=== PATIENT | female | born 1960 | race African-American/Black ===

== ENCOUNTER 2024-09-19 09:35 | Emergency (ER) | payer MEDICAID, OTHER ==
[~2024-09-19] VITALS: Ht 170.2 cm; Wt 92.9 kg
--- NOTE | 2024-09-19 09:58 | ED.PDOC ---
GI ASSESSMENT HPI Comments A 63 YEAR OLD FEMALE PRESENTS TO THE ED WITH CHIEF COMPLAINT OF NAUSEA/VOMITING. PATIENT REPORTS THAT SHE HAS BEEN EXPERIENCING NAUSEA AND VOMITING WITH ASSOCIATED ABDOMINAL PAIN FOR THE PAST 2 DAYS. PATIENT RELAYS THAT SHE FEELS DEHYDRATED DUE TO NOT BEING ABLE TO EAT FOOD OR DRINK LIQUIDS. PATIENT DENIES ANY DIARRHEA, CHEST PAIN, SOB, FEVER, CHILLS, COUGH, HEMATEMESIS, OR DYSURIA.NO OTHER SYMPTOMS REPORTED AT THIS TIME OF CARE. Chief Complaint: Nausea/Vomiting Time Seen by MD: 09:56 Reviewed Notes: Nurses Notes, Medications, Allergies Allergies: Coded Allergies: Acetaminophen (Verified Allergy, Unknown, 09/19/24) Hydrocodone (Verified Allergy, Unknown, 09/19/24) Oxycodone (Verified Allergy, Unknown, 09/19/24) Home Meds Active Scripts Metoclopramide Hcl (Reglan) 10 Mg Tab, 10 MG PO TID, #30 TAB Prov:RAFY KRISHNA 09/19/24 Ibuprofen (Ibuprofen) 800 Mg Tab, 1 TAB PO TID, #30 TAB Prov:RAFY KRISHNA 09/19/24 Information Source: Patient Mode of Arrival: Ambulatory Timing: Days Duration: Since onset Prehospital treatment: None Quality: Aching Vomitus: Food Particles Stool: Normal Severity: Moderate Recent: None Recent Hx of: None Pain Location: Epigastric Modifying Factors: Nothing Associated sign and symptoms: Nausea, Vomiting, Abdominal Pain Past Medical History PAST MEDICAL HISTORY: CKF, DM Surgical History: Denies all surgeries COLDFUSION History: No Pertinent COLDFUSION History Family History Family History: Reviewed,noncontributory to illness Social History Smoker: Non-Smoker Alcohol: Denies ETOH Use Drugs: Denies Drug Use Lives In: Home Constitutional: reports: others (ANXIOUS ); denies: chills, diaphoresis, fatigue, fever, malaise, sweats, weakness EENTM: denies: blurred vision, double vision, ear bleeding, ear discharge, ear drainage, ear pain, ear ringing, eye pain, eye redness, hearing loss, mouth pain, mouth swelling, nasal discharge, nose bleeding, nose congestion, nose pain, photophobia, tearing, throat pain, throat swelling, voice changes, others Respiratory: denies: cough, hemoptysis, orthopnea, SOB at rest, shortness of breath, SOB with excertion, stridor, wheezing, others Cardiovascular: denies: chest pain, dizzy spells, diaphoresis, Dyspnea on exertion, edema, irregular heart beat, left arm pain, lightheadedness, palpitations, PND, syncope, others Gastrointestinal: reports: abdominal pain, nausea, vomiting; denies: abdomen distended, blood streaked bowels, constipated, diarrhea, dysphagia, difficulty swallowing, hematemesis, melena, poor appetite, poor fluid intake, rectal bleeding, rectal pain, others Genitourinary: denies: abnormal vagina bleeding, burning, dyspareunia, dysuria, flank pain, frequency, hematuria, incontinence, pain, , vagina discharge, urgency, others Neurological: denies: dizziness, fainting, headache, left sided numbness, left sided weakness, numbness, paresthesia, pre-existing deficit, right sided numbness, right sided weakness, seizure, speech problems, tingling, tremors, weakness, others Musculoskeletal: denies: back pain, gout, joint pain, joint swelling, muscle pain, muscle stiffness, neck pain, others Integumetry: denies: bruises, change in color, change in hair/nails, dryness, laceration, lesions, lumps, rash, wounds, others Allergic/Immunocompromised: denies: Difficulty Healing, Frequent Infections, Hives, Itching, others Hematologic/Lymphatic: denies: anemia, blood clots, easy bleeding, easy bruising, swollen glands, others Endocrine: denies: excessive hunger, excessive sweating, excessive thirst, excessive urination, flushing, intolerance to cold, intolerance to heat, unexplained weight gain, unexplained weight loss, others Psychiatric: reports: anxiety; denies: bipolar disorder, depression, hopeless, panic disorder, schizophrenia, sleepless, suicidal, others All Other Systems: Reviewed and Negative Physical Exam General Appearance: No Apparent Distress, Obese, Other (ANXIOUS ) HEENT: Normal ENT Inspection, PERRL/EOMI, Pharynx Normal Neck: Full Range of Motion, Non-Tender, Normal, Normal Inspection Respiratory: Chest Non-Tender, Lungs Clear, No Accessory Muscle Use, No Respiratory Distress, Normal Breath Sounds Cardiovascular: No Edema, No JVD, No Murmur, No Gallop, Normal Peripheral Pulses, Regular Rate/Rhythm Breast Exam: Deferred Gastrointestinal: Epigastric, No Organomegaly, No Pulsatile Mass, Normal Bowel Sounds, Soft, Tenderness (TENDERNESS EPIGASTRIC, NO GUARDING AND REBOUND TENDERNESS. ) Genitalia: Deferred Pelvic: Deferred Rectal: Deferred Extremities: No calf tenderness, Normal capillary refill, Normal inspection, Normal range of motion, Non-tender, No pedal edema Musculoskeletal : Apperance: Normal Neurologic: Alert, network developer II-XII nml as Tested, No Motor Deficits, Normal Affect, Normal Mood, No Sensory Deficits Cerebellar Function: Normal Reflexes: Normal Skin: Dry, Normal Color, Warm Peripheral Pulses: 2+ carotid (R), 2+ carotid (L) Lymphatic: No Adenopathy Was a procedure done? Was a procedure done?: No GI differential Dx Differential Diagnosis: Cholecystitis, Gastritis/PUD, Gastroenteritis, Inflammatory BD, UTI, Urolithiasis X-Ray, Labs, Meds, VS Vital Signs Date Time Temp Pulse Resp B/P (MAP) Pulse Ox O2 Delivery O2 Flow Rate FiO2 09/19/24 12:38 83 18 97 Room Air 09/19/24 12:38 97.9 83 18 120/70 (87) 97 97.9 09/19/24 09:51 97.0 112 18 119/69 (86) 98 Lab Test 09/19/24 09:57 09/19/24 09:56 09/19/24 09:54 Range/Units White Blood Count 6.7 4.4-10.8 10^3/uL Red Blood Count 5.32 H 4.0-5.20 10^6/uL Hemoglobin 16.3 H 12.2-16.2 g/dL Hematocrit 48.7 H 36.0-46.0 % Mean Corpuscular Volume 91.5 80.0-100.0 fL Mean Corpuscular Hemoglobin 30.7 28.0-32.0 pg Mean Corpuscular Hemoglobin Concent 33.6 32.0-36.0 g/dL Red Cell Distribution Width 15.3 H 11.8-14.3 % Platelet Count 308 140-450 10^3/uL Mean Platelet Volume 8.9 6.9-10.8 fL Neutrophils (%) (Auto) 59.7 37.0-80.0 % Lymphocytes (%) (Auto) 30.9 10.0-50.0 % Monocytes (%) (Auto) 6.2 0.0-12.0 % Eosinophils (%) (Auto) 2.4 0.0-7.0 % Basophils (%) (Auto) 0.8 0.0-2.0 % Neutrophils # (Auto) 4.0 1.6-8.6 10 ^3/uL Lymphocytes # (Auto) 2.1 0.4-5.4 10 ^3/uL Monocytes # (Auto) 0.4 0-1.3 10 ^3/uL Eosinophils # (Auto) 0.2 0-0.8 10 ^3/uL Basophils # (Auto) 0.1 0-0.2 10 ^3/uL Nucleated Red Blood Cells 0.2 % Sodium Level 139 136-145 mmol/L Potassium Level 4.2 3.5-5.1 mmol/L Chloride Level 106 98-107 mmol/L Carbon Dioxide Level 22 20-31 mmol/L Anion Gap 11 5-15 Blood Urea Nitrogen 26 H 9-23 mg/dL Creatinine 2.21 H 0.550-1.02 mg/dL Glomerular Filtration Rate Calc 25 >90 mL/min BUN/Creatinine Ratio 11.8 10.0-20.0 Serum Glucose 127 H 74-106 mg/dL Calcium Level 10.1 8.7-10.4 mg/dL Total Bilirubin 0.4 0.2-1.0 mg/dL Aspartate Amino Transferase (AST) 17 13-40 U/L Alanine Aminotransferase (ALT) 16 7-40 U/L Alkaline Phosphatase 103 46-116 U/L Total Protein 8.0 5.7-8.2 g/dL Albumin 4.3 3.2-4.8 g/dL Lipase 50 12-53 U/L POC Glucose 148 H 70-106 mg/dl Urine Color Light-yellow Yellow Urine Clarity Cloudy H Clear Urine pH 5.0 5.0-9.0 Urine Specific Sargent 1.022 1.001-1.035 Urine Protein 1+ H Negative Urine Ketones 1+ H Negative Urine Blood Negative Negative /uL Urine Nitrite Negative Negative Urine Bilirubin Negative Negative Urine Urobilinogen Normal Negative mg/dL Urine Leukocyte Esterase 3+ Negative /uL Urine RBC None seen 0 - 4 /hpf Urine WBC 71 0 - 5 /hpf Urine Squamous Epithelial Cells Few <5 /hpf Urine Bacteria Mod H None Seen /hpf Urine Yeast (Budding) Occasional None Seen /hpf Urine Glucose 4+ H Normal mg/dL Current Medications Medications (Trade) Dose Ordered Sig/Ulises Route Start Time Stop Time Status Last Admin Sodium Chloride 1,000 ml @ 1,000 mls/hr Q1H ONCE IV 09/19/24 11:30 09/19/24 12:29 DC 09/19/24 11:30 GALLBLADDER US: FINDINGS: The liver measures 13.7 cm. The liver demonstrates heterogeneous echotexture. There is a echogenic mass in the right lobe measuring 1.3 x 1.2 x 1.1 cm. Additional linear echogenic foci throughout the liver. There is hepatopedal color doppler flow in the main portal vein. There is no intrahepatic biliary ductal dilatation. There are gallstones. The gallbladder wall measures 0.2 cm. The common bile duct measures 0.4 cm. There is a negative sonographic Ventura's sign. The right kidney measures 8.7 cm. The right kidney is normal in contour, size, and shape. The echogenicity is normal. There is no hydronephrosis. The pancreas is not well visualized due to overlying bowel gas. Visualized portions of the aorta and inferior vena cava are unremarkable. No evidence of ascites. IMPRESSION: 1. Cholelithiasis without acute cholecystitis. 2. Heterogeneous echotexture of the liver which could be related to hepatic steatosis. 1.3 cm echogenic mass in the right lobe compatible with a hemangioma. Further evaluation with contrast-enhanced CT of the abdomen pelvis may be obtained if clinically warranted X-Ray, Labs, Meds, VS Comment I reviewed the following notes from patient's past medical encounters: None The following tests were ordered, and results were reviewed by me: CBC, CMP, LIPASE, UA, GALLBLADDER US Additional Information was gathered from interviewing the following independent historians: None I reviewed and agreed with the following test results read by other providers: GALLBLADDER US I discussed treatment and results with medical personnel. TREATMENT: ZOFRAN 4MG IV, FAMOTIDINE 20MG IV, NORMAL SALINE 1L IV AND TORADOL 30MG IVP, ROCEPHIN 1GM IVPB Time of 1ST Reevaluation: 10:56 Reevaluation 1ST: Unchanged Time of 2ND Reevaluation: 12:50 Reevaluation 2ND: Improved Patient Education/Counseling: Diagnosis, Treatment, Need For Follow Up Family Education/Counseling: Diagnosis, Treatment, No Family Present Medical Screening: No EMC Exist At This Time Departure 1 Departure Time of Disposition: 13:20 Impression: Primary Impression: Cholelithiases Qualified Codes: K80.20 - Calculus of gallbladder without cholecystitis without obstruction Additional Impressions: Hepatic hemangioma UTI (urinary tract infection) Qualified Codes: N30.00 - Acute cystitis without hematuria Disposition: HOME / SELF CARE / HOMELESS Condition: Stable Additional Instructions: FOLLOW UP WITH PCP WITHIN 2-3 DAYS. IF CONDITION BECOME WORSE, RETURN TO ED THERESA. e-Prescriptions Metoclopramide Hcl (Reglan) 10 Mg Tab 10 MG PO TID, #30 TAB Prov: RAFY KRISHNA 09/19/24 Ibuprofen (Ibuprofen) 800 Mg Tab 1 TAB PO TID, #30 TAB Prov: RAFY KRISHNA 09/19/24 Discharged With: Self Critical Care Note Critical Care Time?: No Stability Stability form required: No Heart Score Heart Score: Heart Score Response (Comments) Value History N/A 0 EKG N/A 0 Age N/A 0 Risk Factors N/A 0 Troponin N/A 0 Total 0 I personally scribed for RAFY KRISHNA ([email or web address]) on 09/19/24 at 09:58. Electronically submitted by Nathan Velasco ([email or web address]). I personally scribed for RAFY KRISHNA ([email or web address]) on 09/19/24 at 09:59. Electronically submitted by Nathan Velasco ([email or web address]). I personally scribed for RAFY KRISHNA ([email or web address]) on 09/19/24 at 11:57. Electronically submitted by Nathan Velasco ([email or web address]). RAFY KRISHNA Sep 19, 2024 09:58
[2024-09-19 10:29] LABS: Basophils # (auto) 0.1 10 ^3/uL (0-0.2); Basophils % (auto) 0.8 % (0.0-2.0); Eosinophils # (auto) 0.2 10 ^3/uL (0-0.8); Eosinophils % (auto) 2.4 % (0.0-7.0); Hematocrit 48.7 % (36.0-46.0); Hemoglobin 16.3 g/dL (12.2-16.2); Lymphocytes # (auto) 2.1 10 ^3/uL (0.4-5.4); Lymphocytes % (auto) 30.9 % (10.0-50.0); Mean Corpuscular Hemoglobin 30.7 pg (28.0-32.0); Mean Corpuscular Hgb Conc. 33.6 g/dL (32.0-36.0); Mean Corpuscular Volume 91.5 fL (80.0-100.0); Monocytes # (auto) 0.4 10 ^3/uL (0-1.3); Monocytes % (auto) 6.2 % (0.0-12.0); Neutrophils % (auto) 59.7 % (37.0-80.0); Nucleated Red Blood Cells % 0.2 %; Platelet Count (auto) 308 10^3/uL (140-450); Red Blood Cells 5.32 10^6/uL (4.0-5.20); Red Cell Distribution Width 15.3 % (11.8-14.3); White Blood Cell 6.7 10^3/uL (4.4-10.8)
[2024-09-19 10:40] LABS: Alanine Aminotransferase 16 U/L (7-40); Albumin 4.3 g/dL (3.2-4.8); Alkaline Phosphatase 103 U/L (46-116); Anion Gap 11 (5-15); Aspartate Aminotransferase 17 U/L (13-40); BUN/Creatinine Ratio 11.8 (10.0-20.0); Bilirubin, Total 0.4 mg/dL (0.2-1.0); Calcium 10.1 mg/dL (8.7-10.4); Carbon Dioxide 22 mmol/L (20-31); Chloride 106 mmol/L (98-107); Potassium 4.2 mmol/L (3.5-5.1); Sodium 139 mmol/L (136-145)
[2024-09-19 10:45] LABS: Blood Urea Nitrogen 26 mg/dL (9-23); Glucose 127 mg/dL (74-106)
[2024-09-19 11:14] LABS: Lipase 50 U/L (12-53)
[2024-09-19] MEDS: SODIUM CHLORIDE 0.9% 1,000 ML IV ONE (11:30)
[2024-09-19] MEDS: FAMOTIDINE (10MG/ML) 2ML VL IV ONE (11:30)
[2024-09-19] MEDS: ONDANSETRON HCL 4 MG/2 ML VIAL IV ONE (11:30)
--- NOTE | 2024-09-19 11:48 | DVH ---
EXAM: US GALLBLADDER INDICATION: EPIGASTRIC PAIN WITH N/V TECHNIQUE: Multiple real-time sonographic images were obtained of the right upper quadrant. COMPARISON: None FINDINGS: The liver measures 13.7 cm. The liver demonstrates heterogeneous echotexture. There is a e chogenic mass in the right lobe measuring 1.3 x 1.2 x 1.1 cm. Additional linear echogenic foci throug hout the liver. There is hepatopedal color doppler flow in the main portal vein. There is no intrahep atic biliary ductal dilatation. There are gallstones. The gallbladder wall measures 0.2 cm. The common bile duct measures 0.4 cm . There is a negative sonographic Ventura's sign. The right kidney measures 8.7 cm. The right kidney is normal in contour, size, and shape. The echo genicity is normal. There is no hydronephrosis. The pancreas is not well visualized due to overlying bowel gas. Visualized portions of the aorta and inferior vena cava are unremarkable. No evidence of ascites. IMPRESSION: 1. Cholelithiasis without acute cholecystitis. 2. Heterogeneous echotexture of the liver which could be related to hepatic steatosis. 1.3 cm echogen ic mass in the right lobe compatible with a hemangioma. Further evaluation with contrast-enhanced CT of the abdomen pelvis may be obtained if clinically warranted HS:Y
[2024-09-19] MEDS: KETOROLAC TROMETH 30 MG/ML 1ML VIAL IV ONE (12:11)
[2024-09-19 12:38] VITALS: BP 120/70; PULSE 83; RESP 18; TEMP 97.9; O2SAT 97
[2024-09-19] MEDS ORDERED: METO-281 PO (12:41)
[2024-09-19] MEDS ORDERED: IBUP-1456 PO (12:41)
[2024-09-19 12:49] LABS: Urine Bacteria MOD /hpf (None Seen); Urine Blood Negative /uL (Negative); Urine Budding Yeast OCCASIONAL /hpf (None Seen); Urine Color Light-Yellow (Yellow); Urine Protein, UAD 1+ (Negative); Urine Specific Gravity 1.022 (1.001-1.035); Urine Squamous Epithelial Cell FEW /hpf (<5); Urine Urobilinogen Normal (Negative); Urine WBC 71 /hpf (0 - 5)
[2024-09-19 12:50] LABS: Urine Clarity Cloudy (Clear)
[2024-09-19] MEDS: cefTRIAXone SOD 1,000 MG VL IM ONE (12:59)
== END 2024-09-19 13:35 | disposition home or self-care (01) ==
LOC: ER 09:35
DX: K80.20 Calculus of gallbladder without cholecystitis without obstruction (principal); D18.03 Hemangioma of intra-abdominal structures; N39.0 Urinary tract infection, site not specified; E11.22 Type 2 diabetes mellitus with diabetic chronic kidney disease; N18.9 Chronic kidney disease, unspecified; Z88.5 Allergy status to narcotic agent; Z79.1 Long term (current) use of non-steroidal anti-inflammatories (NSAID)
CPT/HCPCS: 36415; 76705; 80053; 81001; 82962; 83690; 85025; 96360; 99284; J0696; J1885; J2405; J3490; J7030

== ENCOUNTER 2024-10-05 03:24 | Inpatient (IN) | payer MEDICAID ==
[~2024-10-05] VITALS: Ht 170.2 cm; Wt 95.8 kg
[~2024-10-05 03:24] MED LIST: CLOP75TA70 PO; EMPA1TAB3 PO; IBUP-1456 PO; INSU75IN2 SC; LOS25T PO; METO-281 PO; METO-289 PO; METO10TA3 PO; ONDA-188 PO; ROSU20TA56 PO; SEMA1INJ2 SC
[2024-10-05] MEDS: SODIUM CHLORIDE 0.9% 1,000 ML IV ONE (03:45)
--- NOTE | 2024-10-05 03:49 | ED.PDOC ---
GI ASSESSMENT HPI Comments 63-year-old female came to emergency room via EMS for abdominal pain. Patient has history of hypertension, diabetes, and gallstones. Patient had dinner earlier, and shortly afterwards she started experiencing right upper quadrant abdominal pain, sharp, cramping, associated bouts of nausea and vomiting. Dulce Maria ortiz was given Zofran by paramedics while in route to the emergency room Chief Complaint: Abdominal Pain Time Seen by MD: 03:48 Primary Care Provider: NONE Reviewed Notes: Nurses Notes Allergies: Coded Allergies: Acetaminophen (Verified Allergy, Unknown, 09/19/24) Hydrocodone (Verified Allergy, Unknown, 09/19/24) Oxycodone (Verified Allergy, Unknown, 09/19/24) Home Meds Active Scripts Metoclopramide Hcl (Reglan) 10 Mg Tab, 10 MG PO TID, #30 TAB Prov:RAFY KRISHNA 09/19/24 Ibuprofen (Ibuprofen) 800 Mg Tab, 1 TAB PO TID, #30 TAB Prov:RAFY KRISHNA 09/19/24 Information Source: Patient Mode of Arrival: EMS Timing: Hours Duration: Since onset Prehospital treatment: Treatment (Zofran) Quality: Cramping, Sharp Vomitus: Watery Stool: Normal Severity: Moderate Recent: Other (Gallstones) Recent Hx of: Other (Gallstones) Pain Location: RUQ Modifying Factors: Nothing Associated sign and symptoms: Nausea, Vomiting, Abdominal Pain Past Medical History PAST MEDICAL HISTORY: CKF, DM, Gallstones, HTN Surgical History: Denies all surgeries BOTTOMING MACHINE OPERATOR History: No Pertinent BOTTOMING MACHINE OPERATOR History Family History Family History: Reviewed,noncontributory to illness Social History Smoker: Non-Smoker Alcohol: Denies ETOH Use Drugs: Denies Drug Use Lives In: Home Constitutional: denies: chills, diaphoresis, fatigue, fever, malaise, sweats, weakness, others EENTM: denies: blurred vision, double vision, ear bleeding, ear discharge, ear drainage, ear pain, ear ringing, eye pain, eye redness, hearing loss, mouth pain, mouth swelling, nasal discharge, nose bleeding, nose congestion, nose pain, photophobia, tearing, throat pain, throat swelling, voice changes, others Respiratory: denies: cough, hemoptysis, orthopnea, SOB at rest, shortness of breath, SOB with excertion, stridor, wheezing, others Cardiovascular: denies: chest pain, dizzy spells, diaphoresis, Dyspnea on exertion, edema, irregular heart beat, left arm pain, lightheadedness, palpitati ons, PND, syncope, others Gastrointestinal: reports: abdominal pain, nausea, vomiting; denies: abdomen distended, blood streaked bowels, constipated, diarrhea, dysphagia, difficulty swallowing, hematemesis, melena, poor appetite, poor fluid intake, rectal bleeding, rectal pain, others Genitourinary: denies: abnormal vagina bleeding, burning, dyspareunia, dysuria, flank pain, frequency, hematuria, incontinence, pain, , vagina discharge, urgency, others Neurological: denies: dizziness, fainting, headache, left sided numbness, left sided weakness, numbness, paresthesia, pre-existing deficit, right sided numbness, right sided weakness, seizure, speech problems, tingling, tremors, weakness, others Musculoskeletal: denies: back pain, gout, joint pain, joint swelling, muscle pain, muscle stiffness, neck pain, others Integumetry: denies: bruises, change in color, change in hair/nails, dryness, laceration, lesions, lumps, rash, wounds, others Allergic/Immunocompromised: denies: Difficulty Healing, Frequent Infections, Hives, Itching, others Hematologic/Lymphatic: denies: anemia, blood clots, easy bleeding, easy bruising, swollen glands, others Endocrine: denies: excessive hunger, excessive sweating, excessive thirst, excessive urination, flushing, intolerance to cold, intolerance to heat, unexplained weight gain, unexplained weight loss, others Psychiatric: denies: anxiety, bipolar disorder, depression, hopeless, panic disorder, schizophrenia, sleepless, suicidal, others Physical Exam General Appearance: No Apparent Distress, Normal HEENT: Normal ENT Inspection, Pharynx Normal, TMs Normal Neck: Full Range of Motion, Non-Tender, Normal, Normal Inspection Respiratory: Chest Non-Tender, Lungs Clear, No Accessory Muscle Use, No Respiratory Distress, Normal Breath Sounds Cardiovascular: No Edema, No JVD, No Murmur, No Gallop, Normal Peripheral Pulses, Regular Rate/Rhythm Breast Exam: Deferred Gastrointestinal: No Organomegaly, No Pulsatile Mass, Normal Bowel Sounds, RUQ, Soft, Tenderness Genitalia: Deferred Pelvic: Deferred Rectal: Deferred Extremities: No calf tenderness, Normal capillary refill, Normal inspection, Normal range of motion, Non-tender, No pedal edema Musculoskeletal : Apperance: Normal Neurologic: Alert, clay press operator II-XII nml as Tested, No Motor Deficits, Normal Affect, Normal Mood, No Sensory Deficits Cerebellar Function: Normal Reflexes: Normal Skin: Dry, Normal Color, Warm Lymphatic: No Adenopathy Was a procedure done? Was a procedure done?: No GI differential Dx Differential Diagnosis: Cholecystitis, Constipation, Diverticular disease, Gastritis/PUD, Gastroenteritis, Pancreatitis, UTI, Urolithiasis, Dehydration, Food Poisoning X-Ray, Labs, Meds, VS Vital Signs Date Time Temp Pulse Resp B/P (MAP) Pulse Ox O2 Delivery O2 Flow Rate FiO2 10/05/24 05:39 97 18 135/69 10/05/24 05:39 95 18 135/69 (91) 97 10/05/24 04:39 97.9 104 22 131/82 (98) 99 97.9 10/05/24 04:36 104 18 131/82 10/05/24 03:33 90 10/05/24 03:24 98.6 96 18 163/76 (105) 97 Lab Test 10/05/24 03:54 Range/Units White Blood Count 17.6 H 4.4-10.8 10^3/uL Red Blood Count 5.09 4.0-5.20 10^6/uL Hemoglobin 15.0 12.2-16.2 g/dL Hematocrit 47.0 H 36.0-46.0 % Mean Corpuscular Volume 92.5 80.0-100.0 fL Mean Corpuscular Hemoglobin 29.6 28.0-32.0 pg Mean Corpuscular Hemoglobin Concent 32.0 32.0-36.0 g/dL Red Cell Distribution Width 14.9 H 11.8-14.3 % Platelet Count 258 140-450 10^3/uL Mean Platelet Volume 8.9 6.9-10.8 fL Neutrophils (%) (Auto) 84.3 H 37.0-80.0 % Lymphocytes (%) (Auto) 9.8 L 10.0-50.0 % Monocytes (%) (Auto) 4.3 0.0-12.0 % Eosinophils (%) (Auto) 1.2 0.0-7.0 % Basophils (%) (Auto) 0.4 0.0-2.0 % Neutrophils # (Auto) 14.8 H 1.6-8.6 10 ^3/uL Lymphocytes # (Auto) 1.7 0.4-5.4 10 ^3/uL Monocytes # (Auto) 0.7 0-1.3 10 ^3/uL Eosinophils # (Auto) 0.2 0-0.8 10 ^3/uL Basophils # (Auto) 0.1 0-0.2 10 ^3/uL Nucleated Red Blood Cells 0.0 % Sodium Level 140 136-145 mmol/L Potassium Level 3.8 3.5-5.1 mmol/L Chloride Level 107 98-107 mmol/L Carbon Dioxide Level 23 20-31 mmol/L Anion Gap 10 5-15 Blood Urea Nitrogen 22 9-23 mg/dL Creatinine 2.21 H 0.550-1.02 mg/dL Glomerular Filtration Rate Calc 25 >90 mL/min BUN/Creatinine Ratio 10.0 10.0-20.0 Serum Glucose 211 H 74-106 mg/dL Calcium Level 10.6 H 8.7-10.4 mg/dL Total Bilirubin 0.4 0.2-1.0 mg/dL Aspartate Amino Transferase (AST) 23 13-40 U/L Alanine Aminotransferase (ALT) 26 7-40 U/L Alkaline Phosphatase 88 46-116 U/L Total Protein 7.6 5.7-8.2 g/dL Albumin 4.3 3.2-4.8 g/dL Lipase 65 H 12-53 U/L Current Medications Medications (Trade) Dose Ordered Sig/Ulises Route Start Time Stop Time Status Last Admin Sodium Chloride 1,000 ml @ 1,000 mls/hr Q1H ONCE IV 10/05/24 03:45 10/05/24 04:44 DC 10/05/24 03:45 Ondansetron HCl (Zofran) 4 mg ONCE ONCE IV 10/05/24 03:45 10/05/24 03:46 DC 10/05/24 04:36 Famotidine (Pepcid Injection) 20 mg ONCE ONCE IV 10/05/24 03:45 10/05/24 03:46 DC 10/05/24 04:43 Morphine Sulfate 4 mg ONCE ONCE IV 10/05/24 03:45 10/05/24 03:46 DC 10/05/24 04:36 Time of 1ST Reevaluation: 03:45 Reevaluation 1ST: Unchanged Patient Education/Counseling: Diagnosis, Treatment Family Education/Counseling: No Family Present Departure 1 Departure Time of Disposition: 05:53 (Patient presented with abdominal pain that was concerning for possible appendicits, gastritis, cholecystitis, colitis, gastroenteritis, sbo, or orther possible surgical emergency. Data: 1. I ordered and reviewed the result of at least 3 labs including a CBC, BMP, and Urinalysis. 2. I independently interpreted the following tests: Ultrasound is concerning for cholelithiasis possible cholecystitis .Risk:This patient has a high risk of morbidity due to further diagnostic testing or treatment and may suffer from an acute abdominal process disorder. Workup reveals cholelithiasis and intractable abdominal pain and patient should be admitted for further workup. and possible expert consultation. ) Impression: Primary Impression: Intractable abdominal pain Additional Impression: Cholelithiasis Qualified Codes: K80.20 - Calculus of gallbladder without cholecystitis without obstruction Disposition: ADMITTED INPATIENT Admit to: Med Surg Condition: Serious Critical Care Note Critical Care Time?: Yes Critical care comment: Intractable abdominal pain Authorized and Performed by: Kelli Swenson MD Total critical care time: Approximately 38 minutes Due to a high probability of clinically significant, life threatening deterioration, the patient required my highest level of preparedness to intervene emergently and I personally spent this critical care time directly and personally managing the patient. This critical care time included obtaining a history; examining the patient; pulse oximetry; ordering and review of studies; arranging urgent treatment with development of a management plan; evaluation of patient's response to treatment; frequent reassessment; and, discussions with other providers. This critical care time was performed to assess and manage the high probability of imminent, life-threatening deterioration that could result in multi-organ failure. It was exclusive of separately billable procedures and treating other patients and teaching time. Please see my other sections and the rest of the note for further information on patient assessment and treatment. Stability Stability form required: No Heart Score Heart Score: Heart Score Response (Comments) Value History N/A 0 EKG N/A 0 Age N/A 0 Risk Factors N/A 0 Troponin N/A 0 Total 0 I personally scribed for KELLI SWENSON MD ([email or web address]) on 10/05/24 at 03:49. Electronically submitted by Alvin Marvin ([email or web address]). KELLI SWENSON MD Oct 05, 2024 03:49
[2024-10-05 04:18] LABS: Basophils # (auto) 0.1 10 ^3/uL (0-0.2); Basophils % (auto) 0.4 % (0.0-2.0); Eosinophils # (auto) 0.2 10 ^3/uL (0-0.8); Eosinophils % (auto) 1.2 % (0.0-7.0); Lymphocytes # (auto) 1.7 10 ^3/uL (0.4-5.4); Lymphocytes % (auto) 9.8 % (10.0-50.0); Mean Corpuscular Hemoglobin 29.6 pg (28.0-32.0); Mean Corpuscular Volume 92.5 fL (80.0-100.0); Monocytes # (auto) 0.7 10 ^3/uL (0-1.3); Monocytes % (auto) 4.3 % (0.0-12.0); Neutrophils # (auto) 14.8 10 ^3/uL (1.6-8.6); Neutrophils % (auto) 84.3 % (37.0-80.0); Platelet Count (auto) 258 10^3/uL (140-450); Red Blood Cells 5.09 10^6/uL (4.0-5.20); Red Cell Distribution Width 14.9 % (11.8-14.3); White Blood Cell 17.6 10^3/uL (4.4-10.8)
[2024-10-05] MEDS: MORPHINE SULFATE 4 MG/ML SYR/VIAL IV ONE (04:36)
[2024-10-05] MEDS: ONDANSETRON HCL 4 MG/2 ML VIAL IV ONE ×2 (04:36→09:10)
[2024-10-05 04:38] LABS: Alanine Aminotransferase 26 U/L (7-40); Albumin 4.3 g/dL (3.2-4.8); Alkaline Phosphatase 88 U/L (46-116); Anion Gap 10 (5-15); Aspartate Aminotransferase 23 U/L (13-40); Blood Urea Nitrogen 22 mg/dL (9-23); Carbon Dioxide 23 mmol/L (20-31); Chloride 107 mmol/L (98-107); Potassium 3.8 mmol/L (3.5-5.1); Sodium 140 mmol/L (136-145)
[2024-10-05 04:39] LABS: Bilirubin, Total 0.4 mg/dL (0.2-1.0); Calcium 10.6 mg/dL (8.7-10.4); Glucose 211 mg/dL (74-106); Lipase 65 U/L (12-53); Total Protein 7.6 g/dL (5.7-8.2)
[2024-10-05] MEDS: FAMOTIDINE (10MG/ML) 2ML VL IV ONE (04:43)
--- NOTE | 2024-10-05 06:07 | DVH ---
INDICATION: ruq pain TECHNIQUE: Real time ultrasonography of the right upper quadrant was performed. COMPARISON: US GALLBLADDER on DOS: 09/19/24 FINDINGS: The liver appears relatively normal in echotexture. There is a echogenic lesion within the right hepa tic lobe measuring 1.4 x 1.4 x 1.3 cm. There is cholelithiasis without evidence of gallbladder wall t hickening or pericholecystic fluid. The common bile duct estimates 0.5 cm. The right kidney measures 7.9 cm. The left kidney measures 8.9 cm. No hydronephrosis. The kidneys a ppear otherwise unremarkable IMPRESSION: 1. Echogenic lesion within the right hepatic lobe likely represents hemangioma as detailed previously . CT hepatic protocol would be confirmatory. 2. Cholelithiasis 3. No significant interval change HS:Y
[2024-10-05] MEDS: metroNIDAZOLE 500MG/100ML 100 ML IV ONE (06:08)
--- NOTE | 2024-10-05 06:46 | DVH ---
Exam: CT CT AB PEL WO CON-NO ORAL OR IV History: abdominal pain Comparison Study: Ultrasound 10/05/2024 TECHNIQUE: Multidetector CT of the abdomen was performed from lung bases to pubic symphysis. Imaging was performed without IV contrast. Axial, coronal and sagittal multiplanar reformats were obtained fr om the axial data set by the technologist. Radiation optimization: All CT scans at this facility use at least one of these dose optimization prateek hniques: automated exposure control mA and/or kV adjustment per patient size (includes targeted exam s where dose is matched to clinical indication) or iterative reconstruction. Radiation Dose Information: CT Dose: CTDI volume is 12.5 mGy. Dose-length product is 710.2 mGy*cm FINDINGS: Evaluation of solid organs is limited due to lack of intravenous contrast use. Findings: Imaged portions of the lung bases appear unremarkable. There is a small hiatal hernia. Liver, spleen, pancreas and adrenal glands appear unremarkable. There is cholelithiasis without evidence of gallbla dder wall thickening or pericholecystic fluid. Kidneys appear symmetric without hydronephrosis. There is no evidence of bowel obstruction or focal bowel wall thickening. The appendix appears normal . The uterus is retroverted with multiple fibroids. Bilateral pars defects with grade 1 anterolisthesis at L5-S1. No suspicious osseous lesion IMPRESSION: 1. No acute findings. 2. Cholelithiasis. 3. Small hiatal hernia 4. Bilateral pars defects with grade 1 anterolisthesis at L5-S1. 5. Uterine fibroids
[2024-10-05 06:47] LABS: Urine Bacteria FEW /hpf (None Seen); Urine Blood 1+ /uL (Negative); Urine Clarity Turbid (Clear); Urine Color Light-Yellow (Yellow); Urine Protein, UAD TRACE (Negative); Urine Specific Gravity 1.021 (1.001-1.035); Urine Squamous Epithelial Cell FEW /hpf (<5); Urine Urobilinogen Normal (Negative); Urine WBC 91 /HPF (0-5); Urine WBC Clumps PRESENT /hpf (None Seen)
[2024-10-05] MEDS: ceFAZolin 2 GM/D5W50ml 50 ML IV ONE (07:20)
[2024-10-05] MEDS: MORPHINE SULFATE INJ 2 MG/ml SYRG IV ONE (09:09)
[2024-10-05] MEDS ORDERED: ACETAMINOPHEN 325 MG TAB PO PRN (10:00)
[2024-10-05] MEDS ORDERED: DEXTROSE (50%) 50ML SYRG IV PRN (10:00)
--- NOTE | 2024-10-05 10:07 | DVHHP2 ---
History of Present Illness Reason for Visit: Abdominal pain History of Present Illness Krysta Mcgrath is a 63-year-old female with past medical history of hypertension, diabetes, CKD, cholelithiasis, bilateral ankle surgery, , left cataract surgery, and bilateral retinal detachment surgery who presents to the ED for abdominal pain, nausea, and vomiting x2 days. Patient reports that the pain is sharp and cramping 5/10. She also reports that she has a poor appetite. Patient reports that she is still voiding well. Patient reports that she was here on September 19 and was told that she was supposed to have surgery but never did due to her insurance. Patient reports that she is back for the s yarely symptoms and here is here for evaluation. Patient denies any chest pain, shortness of breath, diarrhea, lightheadedness, weakness, and dizziness. Cardiovascular: HTN Hepatobiliary: Cholelithiasis Renal/: Chronic renal insuff Endocrine: Diabetes Past Surgical History: , Other (Bilateral ankle surgery, left cataract surgery, bilateral retinal detachment surgery) Family History: Cancer, CVA, Other (Mom with colon cancer dad with CVA) Smoke: No ALCOHOL: none Drugs: None Lives: with Family Domestic Violence: Neg Review of Systems Constitutional: No: Fever, Chills, Sweats, Weakness, Malaise, Other Eyes: No: Pain, Vision change, Conjunctivae inflammation, Eyelid inflammation, Other, Redness ENT: No: Ear pain, Ear discharge, Nose pain, Nose discharge, Nose congestion, Mouth pain, Mouth swelling, Throat pain, Throat swelling, Other Respiratory: No: Cough, Dry, Shortness of breath, SOB with excertion, Wheezing, Hemoptysis, Pleuritic Pain, Sputum, Wheezing, Other Cardiovascular: No: Chest Pain, Palpitations, Orthopnea, Paroxysmal Noc. Dyspnea, Edema, Lt Headedness, Other Gastrointestinal: Nausea, Vomiting, Abdominal Pain; No: Diarrhea, Constipation, Melena, Hematochezia, Other Genitourinary: No Dysuria, No Frequency, No Incontinence, No Hematuria, No Retention, No Other Musculoskeletal: No: other, neck pain, shoulder pain, arm pain, back pain, hand pain, leg pain, foot pain Skin: No: Rash, Lesions, Jaundice, Bruising, Other Neurological: No: Weakness, Numbness, Incoordination, Change in speech, Confus ion, Seizures, Other Allergies: Coded Allergies: Hydrocodone (Verified Allergy, Unknown, 09/19/24) Oxycodone (Verified Allergy, Unknown, 09/19/24) Exam Vital Signs Vital Signs Date Time Temp Pulse Resp B/P (MAP) Pulse Ox O2 Delivery O2 Flow Rate FiO2 10/05/24 09:39 89 16 112/61 10/05/24 09:08 98.0 97 98.0 10/05/24 07:32 Room Air 10/05/24 07:28 0 21 General Appearance: Alert, Oriented X3, Cooperative, No acute distress HEENT: Atraumatic, PERRLA, EOMI, Mucous membr. moist/pink Respiratory: Normal air movement Cardiovascular: Normal S1, Normal S2, No murmurs Abdominal: Soft Extremities: No clubbing, No cyanosis, No edema, Normal pulses, No tenderness/swelling Skin: No significant lesion Neuro: Normal gait, Normal speech, Strength at 5/5 X4 ext, Normal tone, Sensation intact Psych/Mental Status: Mental status NL, Mood NL Labs/Xrays Labs Test 10/05/24 07:05 10/05/24 06:39 10/05/24 03:54 Range/Units Lactic Acid Level 1.4 0.4-2.0 mmol/L Urine Color Light-yellow Yellow Urine Clarity Turbid H Clear Urine pH 5.0 5.0-9.0 Urine Specific [place] 1.021 1.001-1.035 Urine Protein Trace H Negative Urine Ketones Trace Negative Urine Blood 1+ H Negative /uL Urine Nitrite Negative Negative Urine Bilirubin Negative Negative Urine Urobilinogen Normal Negative mg/dL Urine Leukocyte Esterase 3+ Negative /uL Urine RBC 12 0 - 4 /hpf Urine WBC Clumps Present None Seen /hpf Urine Microscopic WBC 91 H 0-5 /HPF Urine Squamous Epithelial Cells Few <5 /hpf Urine Bacteria Few H None Seen /hpf Urine Glucose 4+ H Normal mg/dL White Blood Count 17.6 H 4.4-10.8 10^3/uL Red Blood Count 5.09 4.0-5.20 10^6/uL Hemoglobin 15.0 12.2-16.2 g/dL Hematocrit 47.0 H 36.0-46.0 % Mean Corpuscular Volume 92.5 80.0-100.0 fL Mean Corpuscular Hemoglobin 29.6 28.0-32.0 pg Mean Corpuscular Hemoglobin Concent 32.0 32.0-36.0 g/dL Red Cell Distribution Width 14.9 H 11.8-14.3 % Platelet Count 258 140-450 10^3/uL Mean Platelet Volume 8.9 6.9-10.8 fL Neutrophils (%) (Auto) 84.3 H 37.0-80.0 % Lymphocytes (%) (Auto) 9.8 L 10.0-50.0 % Monocytes (%) (Auto) 4.3 0.0-12.0 % Eosinophils (%) (Auto) 1.2 0.0-7.0 % Basophils (%) (Auto) 0.4 0.0-2.0 % Neutrophils # (Auto) 14.8 H 1.6-8.6 10 ^3/uL Lymphocytes # (Auto) 1.7 0.4-5.4 10 ^3/uL Monocytes # (Auto) 0.7 0-1.3 10 ^3/uL Eosinophils # (Auto) 0.2 0-0.8 10 ^3/uL Basophils # (Auto) 0.1 0-0.2 10 ^3/uL Nucleated Red Blood Cells 0.0 % Sodium Level 140 136-145 mmol/L Potassium Level 3.8 3.5-5.1 mmol/L Chloride Level 107 98-107 mmol/L Carbon Dioxide Level 23 20-31 mmol/L Anion Gap 10 5-15 Blood Urea Nitrogen 22 9-23 mg/dL Creatinine 2.21 H 0.550-1.02 mg/dL Glomerular Filtration Rate Calc 25 >90 mL/min BUN/Creatinine Ratio 10.0 10.0-20.0 Serum Glucose 211 H 74-106 mg/dL Calcium Level 10.6 H 8.7-10.4 mg/dL Total Bilirubin 0.4 0.2-1.0 mg/dL Aspartate Amino Transferase (AST) 23 13-40 U/L Alanine Aminotransferase (ALT) 26 7-40 U/L Alkaline Phosphatase 88 46-116 U/L Total Protein 7.6 5.7-8.2 g/dL Albumin 4.3 3.2-4.8 g/dL Lipase 65 H 12-53 U/L Exam: CT CT AB PEL WO CON-NO ORAL OR IV History: abdominal pain Comparison Study: Ultrasound 10/05/2024 TECHNIQUE: Multidetector CT of the abdomen was performed from lung bases to pubic symphysis. Imaging was performed without IV contrast. Axial, coronal and sagittal multiplanar reformats were obtained from the axial data set by the technologist. Radiation optimization: All CT scans at this facility use at least one of these dose optimization techniques: automated exposure control mA and/or kV adjustment per patient size (includes targeted exams where dose is matched to clinical indication) or iterative reconstruction. Radiation Dose Information: CT Dose: CTDI volume is 12.5 mGy. Dose-length product is 710.2 mGy*cm FINDINGS: Evaluation of solid organs is limited due to lack of intravenous contrast use. Findings: Imaged portions of the lung bases appear unremarkable. There is a small hiatal hernia. Liver, spleen, pancreas and adrenal glands appear unremarkable. There is cholelithiasis without evidence of gallbladder wall thickening or pericholecystic fluid. Kidneys appear symmetric without hydronephrosis. There is no evidence of bowel obstruction or focal bowel wall thickening. The appendix appears normal. The uterus is retroverted with multiple fibroids. Bilateral pars defects with grade 1 anterolisthesis at L5-S1. No suspicious osseous lesion IMPRESSION: 1. No acute findings. 2. Cholelithiasis. 3. Small hiatal hernia 4. Bilateral pars defects with grade 1 anterolisthesis at L5-S1. 5. Uterine fibroids INDICATION: ruq pain TECHNIQUE: Real time ultrasonography of the right upper quadrant was performed. COMPARISON: US GALLBLADDER on DOS: 09/19/24 FINDINGS: The liver appears relatively normal in echotexture. There is a echogenic lesion within the right hepatic lobe measuring 1.4 x 1.4 x 1.3 cm. There is jimbo lithiasis without evidence of gallbladder wall thickening or pericholecystic fluid. The common bile duct estimates 0.5 cm. The right kidney measures 7.9 cm. The left kidney measures 8.9 cm. No hydronephrosis. The kidneys appear otherwise unremarkable IMPRESSION: 1. Echogenic lesion within the right hepatic lobe likely represents hemangioma as detailed previously. CT hepatic protocol would be confirmatory. 2. Cholelithiasis 3. No significant interval change Assessment/Plan Assessment/Plan Assessment/Plan: Intractable abdominal pain Leukocytosis likely due to UTI Glucosuria SALLY on CKD4 Elevated lipase Labs UA CT abdomen and pelvis Antiemetics Antipyretics Pain management IV antibiotics-Flagyl plus cefazolin PPI NS 1 L given ED Blood cultures Lactic acid level Ultrasound gallbladder Lipase EKG Ultrasound kidney Strict I's and O's Nephro consult Diabetes type 2 uncontrolled Hemoglobin A1c 7.6% ISS and Accu-Cheks Chronic hypertension Continue home medications History of cholelithiasis Monitor Bilateral pars defects with grade 1 anterolisthesis at L5-S1. Patient reports that it is since . Follow up outpatient with PCP Uterine fibroids Small hiatal hernia Echogenic lesion within the right hepatic lobe likely represents hemangioma Follow up outpatient with PCP FEN/PPX Diet IV fluids DVT prophylaxis not indicated patient ambulating PUD prophylaxis not indicated no history of GERD or GI bleed Admit to med surg Home medications reconciled Discussed plan of care with patient and nurse Plan discussed with: Patient My Orders Orders - SHAMIR VALENTIN Procedure Category Date Status Time *[facility] CONS 10/05/24 Verified -[place] 09:58 Hemoglobin A1c LAB 10/05/24 Verified 09:58 Date of Service: Oct 05, 2024 Billing Provider: SHAMIR VALENTIN Common Visit Codes: [id number] INP/OBS CARE (HIGH) SHAMIR VALENTIN Oct 05, 2024 10:07
[2024-10-05] MEDS: SODIUM CHLORIDE 0.9% 1,000 ML IV SCH (10:48)
--- NOTE | 2024-10-05 11:14 | DVHINCON2 ---
Date of service: Oct 05, 2024 Referring Physician Kori Goode, nurse practitioner Reason for Consultation Acute kidney injury History of Present Illness Patient is a 63-year-old female with past medical history of CKD, DM, Gallstones, and HTN is admitted for abdominal pain. On admission patient found to have elevated creatinine nephrology is consulted for acute kidney injury Past Medical History PAST MEDICAL HISTORY: CKd, DM, Gallstones, HTN Past Surgical History PAST MEDICAL HISTORY: CKF, DM, Gallstones, HTN Surgical History: Denies all surgeries Allergies: Coded Allergies: Hydrocodone (Verified Allergy, Unknown, 09/19/24) Oxycodone (Verified Allergy, Unknown, 09/19/24) Home Meds Active Scripts Ibuprofen (Ibuprofen) 800 Mg Tab, 1 TAB PO TID, #30 TAB Prov:RAFY KRISHNA 09/19/24 Reported Medications Metoprolol Succinate (Metoprolol Succinate Er) 50 Mg Tab, 1 TAB PO DAILY 10/05/24 Losartan Potassium (Losartan Potassium) 25 Mg Tab, 1 TAB PO DAILY 10/05/24 Clopidogrel Bisulfate (CLOPIDOGREL) 75 Mg Tab, 1 TAB PO DAILY 10/05/24 Rosuvastatin Calcium (Rosuvastatin Calcium) 20 Mg Tab, 1 TAB PO DAILY 10/05/24 Ondansetron HCl (Ondansetron Hydrochloride) 4 Mg Tab, 1 TAB PO TID PRN 10/05/24 Discontinued Scripts Metoclopramide Hcl (Reglan) 10 Mg Tab, 10 MG PO TID, #30 TAB Prov:RAFY KRISHNA 09/19/24 Current Medications Current Medications Medications (Trade) Dose Ordered Sig/Ulises Route PRN Reason Start Time Stop Time Status Last Admin Diagnostic Test (Pha) (Accu-Chek Comfort Curve T) 1 strip ACHS 10/05/24 11:30 10/06/24 07:48 Insulin Human Regular (InsuLIN R) ACHS SC 10/05/24 11:30 10/05/24 17:20 Metronidazole 100 ml @ 100 mls/hr Q8HR IV 10/05/24 14:00 10/06/24 05:58 Cefazolin Sodium 50 ml @ 100 mls/hr Q8HR IV 10/05/24 14:00 10/06/24 07:41 DC 10/06/24 05:18 Metoprolol Succinate (Toprol Xl) 50 mg DAILY PO 10/06/24 10:00 10/06/24 10:45 Potassium Chloride (Klor-Con Tablet) 20 meq DAILY PO 10/06/24 10:00 10/06/24 10:36 Clopidogrel Bisulfate (Plavix) 75 mg DAILY PO 10/07/24 10:00 Empaglifozin (Jardiance) 10 mg DAILY PO 10/06/24 10:15 Ceftriaxone Sodium 50 ml @ 100 mls/hr DAILY@09 IV 10/07/24 09:00 Review of Systems All 12 item review of systems reviewed with the patient nonsignificant except what is mentioned in the history of present illness H&P Exam Vital Signs/I&O Vital Sign Date Time Temp Pulse Resp B/P (MAP) Pulse Ox O2 Delivery O2 Flow Rate FiO2 10/06/24 10:45 87 130/69 10/06/24 10:17 97.3 15 96 97.3 10/05/24 07:32 Room Air 10/05/24 07:28 0 21 Intake and Output 0 10/05/24 10/06/24 19:00 07:00 Intake Total 360 ml 400 ml Balance 360 ml 400 ml Intake IV Total 360 ml 400 ml Physical Exam Patient lying in bed appeared in no acute distress Lungs clear to auscultation bilaterally Cardiac exam regular rate and rhythm GI soft nontender was normal Extremities no clubbing cyanosis or edema Neuro nonfocal Labs/Diagnostic Data Labs/Diagnostic Data Laboratory Tests Test 10/06/24 06:03 10/06/24 05:57 10/06/24 02:26 10/05/24 20:47 Range/Units POC Glucose 80 154 H 128 H 70-106 mg/dl White Blood Count 9.6 # 4.4-10.8 10^3/uL Red Blood Count 4.55 4.0-5.20 10^6/uL Hemoglobin 13.8 12.2-16.2 g/dL Hematocrit 42.3 36.0-46.0 % Mean Corpuscular Volume 92.9 80.0-100.0 fL Mean Corpuscular Hemoglobin 30.4 28.0-32.0 pg Mean Corpuscular Hemoglobin Concent 32.7 32.0-36.0 g/dL Red Cell Distribution Width 15.0 H 11.8-14.3 % Platelet Count 241 140-450 10^3/uL Mean Platelet Volume 9.0 6.9-10.8 fL Neutrophils (%) (Auto) 63.9 37.0-80.0 % Lymphocytes (%) (Auto) 25.1 10.0-50.0 % Monocytes (%) (Auto) 7.9 0.0-12.0 % Eosinophils (%) (Auto) 2.5 0.0-7.0 % Basophils (%) (Auto) 0.6 0.0-2.0 % Neutrophils # (Auto) 6.1 1.6-8.6 10 ^3/uL Lymphocytes # (Auto) 2.4 0.4-5.4 10 ^3/uL Monocytes # (Auto) 0.8 0-1.3 10 ^3/uL Eosinophils # (Auto) 0.2 0-0.8 10 ^3/uL Basophils # (Auto) 0.1 0-0.2 10 ^3/uL Nucleated Red Blood Cells 0.0 % Sodium Level 140 136-145 mmol/L Potassium Level 3.4 L 3.5-5.1 mmol/L Chloride Level 106 98-107 mmol/L Carbon Dioxide Level 25 20-31 mmol/L Anion Gap 9 5-15 Blood Urea Nitrogen 20 9-23 mg/dL Creatinine 2.11 H 0.550-1.02 mg/dL Glomerular Filtration Rate Calc 26 >90 mL/min BUN/Creatinine Ratio 9.5 L 10.0-20.0 Serum Glucose 75 74-106 mg/dL Calcium Level 9.2 8.7-10.4 mg/dL Total Bilirubin 0.4 0.2-1.0 mg/dL Aspartate Amino Transferase (AST) 14 13-40 U/L Alanine Aminotransferase (ALT) 15 7-40 U/L Alkaline Phosphatase 77 46-116 U/L Total Protein 6.7 5.7-8.2 g/dL Albumin 4.0 3.2-4.8 g/dL Triglycerides Level 55 < 150 mg/dL Cholesterol Level 132 < 200 mg/dL LDL Cholesterol 47 < 100 mg/dL HDL Cholesterol 64 H 40-59 mg/dL Beta HCG, Quantitative 4.5 H 1.5-4.2 mIU/mL Test 10/05/24 17:08 10/05/24 12:47 10/05/24 07:05 10/05/24 06:39 Range/Units POC Glucose 132 H 70-106 mg/dl Lactic Acid Level 1.4 0.4-2.0 mmol/L Urine Color Light-yellow Yellow Urine Clarity Turbid H Clear Urine pH 5.0 5.0-9.0 Urine Specific [place] 1.021 1.001-1.035 Urine Protein Trace H Negative Urine Ketones Trace Negative Urine Blood 1+ H Negative /uL Urine Nitrite Negative Negative Urine Bilirubin Negative Negative Urine Urobilinogen Normal Negative mg/dL Urine Leukocyte Esterase 3+ Negative /uL Urine RBC 12 0 - 4 /hpf Urine WBC Clumps Present None Seen /hpf Urine Microscopic WBC 91 H 0-5 /HPF Urine Squamous Epithelial Cells Few <5 /hpf Urine Bacteria Few H None Seen /hpf Urine Creatinine 76.24 30.0-125.0 mg/dL Urine Protein/Creatinine Ratio 0.49 Urine Sodium 84 40-220 mmol/L Urine Glucose 4+ H Normal mg/dL Urine Total Protein 37.0 H 1-14 mg/dL Test 10/05/24 03:54 Range/Units White Blood Count 17.6 H 4.4-10.8 10^3/uL Red Blood Count 5.09 4.0-5.20 10^6/uL Hemoglobin 15.0 12.2-16.2 g/dL Hematocrit 47.0 H 36.0-46.0 % Mean Corpuscular Volume 92.5 80.0-100.0 fL Mean Corpuscular Hemoglobin 29.6 28.0-32.0 pg Mean Corpuscular Hemoglobin Concent 32.0 32.0-36.0 g/dL Red Cell Distribution Width 14.9 H 11.8-14.3 % Platelet Count 258 140-450 10^3/uL Mean Platelet Volume 8.9 6.9-10.8 fL Neutrophils (%) (Auto) 84.3 H 37.0-80.0 % Lymphocytes (%) (Auto) 9.8 L 10.0-50.0 % Monocytes (%) (Auto) 4.3 0.0-12.0 % Eosinophils (%) (Auto) 1.2 0.0-7.0 % Basophils (%) (Auto) 0.4 0.0-2.0 % Neutrophils # (Auto) 14.8 H 1.6-8.6 10 ^3/uL Lymphocytes # (Auto) 1.7 0.4-5.4 10 ^3/uL Monocytes # (Auto) 0.7 0-1.3 10 ^3/uL Eosinophils # (Auto) 0.2 0-0.8 10 ^3/uL Basophils # (Auto) 0.1 0-0.2 10 ^3/uL Nucleated Red Blood Cells 0.0 % Sodium Level 140 136-145 mmol/L Potassium Level 3.8 3.5-5.1 mmol/L Chloride Level 107 98-107 mmol/L Carbon Dioxide Level 23 20-31 mmol/L Anion Gap 10 5-15 Blood Urea Nitrogen 22 9-23 mg/dL Creatinine 2.21 H 0.550-1.02 mg/dL Glomerular Filtration Rate Calc 25 >90 mL/min BUN/Creatinine Ratio 10.0 10.0-20.0 Serum Glucose 211 H 74-106 mg/dL Hemoglobin A1c 7.6 H <5.7 % A1C Calcium Level 10.6 H 8.7-10.4 mg/dL Phosphorus Level 4.0 2.4-5.1 mg/dL Magnesium Level 2.3 1.6-2.6 mg/dL Total Bilirubin 0.4 0.2-1.0 mg/dL Aspartate Amino Transferase (AST) 23 13-40 U/L Alanine Aminotransferase (ALT) 26 7-40 U/L Alkaline Phosphatase 88 46-116 U/L Total Protein 7.6 5.7-8.2 g/dL Albumin 4.3 3.2-4.8 g/dL Lipase 65 H 12-53 U/L Assessment Acute kidney injury superimposed on Chronic Kidney Disease stage IIIB/four secondary hemodynamic mediated Abdominal pain History of gallstones Urinary tract infection Diabetes mellitus type 2 Hypertension Recommendations Closely monitor fluid and electrolytes Avoid nephrotoxic medication Strict I&Os Check urine electrolytes and protein excretion Check kidney ultrasound IV antibiotics Insulin sliding scale We will continue to follow Patient seen and examined by myself in the ER. I discussed my plan of care with the patient and primary nurse at the bedside I would like to thank Kori for the consult, will follow up Plan discussed with: Patient KIKI BUENROSTRO MD Oct 05, 2024 11:14
[2024-10-05] MEDS: ACCU-CHEK COMFORT CURVE STRIP VI SCH (11:18)
[2024-10-05] MEDS: InsuLIN REG 1unit/0.01ml Soln (100units/ml) SC SCH (11:18)
[2024-10-05 11:58] LABS: Magnesium 2.3 mg/dL (1.6-2.6)
[2024-10-05 12:42] LABS: Creatinine, Urine 76.24 mg/dL (30.0-125.0); Urine Protein/Creatinine Ratio 0.49
[2024-10-05] MEDS: metroNIDAZOLE 500MG/100ML 100 ML IV SCH (15:36)
[2024-10-05 15:50] VITALS: BP 127/65; PULSE 86; RESP 16; TEMP 97.8; O2SAT 98
[2024-10-05] MEDS: ceFAZolin 1GM/50ML 50 ML IV SCH (17:01)
[2024-10-05 21:00] VITALS: BP 116/60; PULSE 80; RESP 12; TEMP 97.3; O2SAT 96
[2024-10-06] VITALS (8 sets, daily range): BP systolic 131–147; BP diastolic 58–89; PULSE 80–89; RESP 16–22; TEMP 97.6–98.5; O2SAT 95–100
[2024-10-06 06:38] LABS: Basophils # (auto) 0.1 10 ^3/uL (0-0.2); Basophils % (auto) 0.6 % (0.0-2.0); Eosinophils # (auto) 0.2 10 ^3/uL (0-0.8); Eosinophils % (auto) 2.5 % (0.0-7.0); Hematocrit 42.3 % (36.0-46.0); Hemoglobin 13.8 g/dL (12.2-16.2); Lymphocytes # (auto) 2.4 10 ^3/uL (0.4-5.4); Lymphocytes % (auto) 25.1 % (10.0-50.0); Mean Corpuscular Hemoglobin 30.4 pg (28.0-32.0); Mean Corpuscular Hgb Conc. 32.7 g/dL (32.0-36.0); Mean Corpuscular Volume 92.9 fL (80.0-100.0); Monocytes # (auto) 0.8 10 ^3/uL (0-1.3); Monocytes % (auto) 7.9 % (0.0-12.0); Neutrophils # (auto) 6.1 10 ^3/uL (1.6-8.6); Neutrophils % (auto) 63.9 % (37.0-80.0); Platelet Count (auto) 241 10^3/uL (140-450); Red Blood Cells 4.55 10^6/uL (4.0-5.20); White Blood Cell 9.6 10^3/uL (4.4-10.8)
[2024-10-06 06:57] LABS: Alanine Aminotransferase 15 U/L (7-40); Alkaline Phosphatase 77 U/L (46-116); Anion Gap 9 (5-15); Aspartate Aminotransferase 14 U/L (13-40); BUN/Creatinine Ratio 9.5 (10.0-20.0); Blood Urea Nitrogen 20 mg/dL (9-23); Calcium 9.2 mg/dL (8.7-10.4); Carbon Dioxide 25 mmol/L (20-31); Chloride 106 mmol/L (98-107); Glucose 75 mg/dL (74-106); Sodium 140 mmol/L (136-145)
[2024-10-06 06:58] LABS: Total Protein 6.7 g/dL (5.7-8.2)
[2024-10-06 07:07] LABS: Potassium 3.4 mmol/L (3.5-5.1)
[2024-10-06 07:10] LABS: Bilirubin, Total 0.4 mg/dL (0.2-1.0)
[2024-10-06] MEDS: POTASSIUM CHL 20 Meq TABLET PO ONE (08:20)
[2024-10-06 08:41] LABS: LDL Cholesterol 47 mg/dL (< 100); Triglycerides 55 mg/dL (< 150)
[2024-10-06 08:42] LABS: Cholesterol 132 mg/dL (< 200)
[2024-10-06 08:45] LABS: HDL Cholesterol 64 mg/dL (40-59)
[2024-10-06] MEDS: POTASSIUM CHL 20 Meq TABLET PO SCH (10:36)
[2024-10-06] MEDS: CLOPIDOGREL BISULFATE 75 MG TAB PO ONE (10:44)
[2024-10-06] MEDS: METOPROLOL SUCCINATE XL 50 MG TAB PO SCH (10:45)
--- NOTE | 2024-10-06 10:52 | DVHPN2 ---
Progress Note Date Seen: Oct 06, 2024 Medical Necessity Reason Pt with a Central, PICC or Fol: No Subjective Patient reports: No new complaints Other Systems: Patient seen and examined by myself today in follow-up Objective vital signs Vital Sign Date Time Temp Pulse Resp B/P (MAP) Pulse Ox O2 Delivery O2 Flow Rate FiO2 10/06/24 10:45 87 130/69 10/06/24 10:17 97.3 15 96 97.3 10/05/24 07:32 Room Air 10/05/24 07:28 0 21 Total Intake and Output 10/05/24 10/05/24 10/06/24 15:00 23:00 07:00 Intake Total 210 ml 250 ml 300 ml Balance 210 ml 250 ml 300 ml medications Current Medications Medications Dose Ordered Sig/Ulises Route Start Time Stop Time Status Last Admin Dose Admin Diagnostic Test (Pha) 1 strip ACHS 10/05/24 11:30 10/06/24 07:48 Insulin Human Regular ACHS SC 10/05/24 11:30 10/05/24 17:20 Dextrose 50 ml UD PRN IV 10/05/24 10:00 Ondansetron HCl 4 mg Q4HP PRN IV 10/05/24 10:00 Acetaminophen 650 mg Q6HP PRN PO 10/05/24 10:00 Metronidazole 100 ml @ 100 mls/hr Q8HR IV 10/05/24 14:00 10/06/24 05:58 Metoprolol Succinate 50 mg DAILY PO 10/06/24 10:00 10/06/24 10:45 Potassium Chloride 20 meq DAILY PO 10/06/24 10:00 10/06/24 10:36 Clopidogrel Bisulfate 75 mg DAILY PO 10/07/24 10:00 Empaglifozin 10 mg DAILY PO 10/06/24 10:15 Ceftriaxone Sodium 50 ml @ 100 mls/hr DAILY@09 IV 10/07/24 09:00 Examination: LUNGS:Normal, CVS:Normal, MSK:Normal laboratory and microbiology Laboratory Tests 10/06/24 05:57 Test 10/06/24 05:57 Range/Units Serum Glucose 75 74-106 mg/dL Microbiology Date/Time Source Procedure Growth Status 10/05/24 07:10 Blood Blood Culture - Preliminary NO GROWTH AFTER 24 HOURS OF INCUBATION. 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
[2024-10-06] MEDS: EMPAGLIFLOZIN 10 MG TAB PO SCH (11:27)
[2024-10-06] MEDS: ONDANSETRON HCL 4 MG/2 ML VIAL IV PRN (12:31)
--- NOTE | 2024-10-06 12:49 | DVHINCON2 ---
Date of service: Oct 06, 2024 History of Present Illness 63-year-old female complaining of epigastric and right upper quadrant abdominal pain since earlier this month. She was previously seen in the ER earlier this month and was diagnosed with gallstones was sent home however pain persisted and even got worse yesterday therefore came to the back to the emergency room. Patient denies any fevers or chills but reports nausea and vomiting. Past Medical History History of CVA. Hypertension. Diabetes. Chronic kidney disease. Past Surgical History Ankle surgery. Denies any abdominal surgeries. Family History Noncontributory Social History Denies alcohol, tobacco, IV drug use Allergies: Coded Allergies: Hydrocodone (Verified Allergy, Unknown, 09/19/24) Oxycodone (Verified Allergy, Unknown, 09/19/24) Home Meds Active Scripts Ibuprofen (Ibuprofen) 800 Mg Tab, 1 TAB PO TID, #30 TAB Prov:RAFY KRISHNA 09/19/24 Reported Medications Metoprolol Succinate (Metoprolol Succinate Er) 50 Mg Tab, 1 TAB PO DAILY 10/05/24 Losartan Potassium (Losartan Potassium) 25 Mg Tab, 1 TAB PO DAILY 10/05/24 Clopidogrel Bisulfate (CLOPIDOGREL) 75 Mg Tab, 1 TAB PO DAILY 10/05/24 Rosuvastatin Calcium (Rosuvastatin Calcium) 20 Mg Tab, 1 TAB PO DAILY 10/05/24 Ondansetron HCl (Ondansetron Hydrochloride) 4 Mg Tab, 1 TAB PO TID PRN 10/05/24 Discontinued Scripts Metoclopramide Hcl (Reglan) 10 Mg Tab, 10 MG PO TID, #30 TAB Prov:RAFY KRISHNA 09/19/24 Current Medications Current Medications Medications (Trade) Dose Ordered Sig/Ulises Route PRN Reason Start Time Stop Time Status Last Admin Metronidazole 100 ml @ 100 mls/hr Q8HR IV 10/05/24 14:00 10/06/24 05:58 Cefazolin Sodium 50 ml @ 100 mls/hr Q8HR IV 10/05/24 14:00 10/06/24 07:41 DC 10/06/24 05:18 Metoprolol Succinate (Toprol Xl) 50 mg DAILY PO 10/06/24 10:00 10/06/24 10:45 Potassium Chloride (Klor-Con Tablet) 20 meq DAILY PO 10/06/24 10:00 10/06/24 10:36 Clopidogrel Bisulfate (Plavix) 75 mg DAILY PO 10/07/24 10:00 Empaglifozin (Jardiance) 10 mg DAILY PO 10/06/24 10:15 10/06/24 11:27 Ceftriaxone Sodium 50 ml @ 100 mls/hr DAILY@09 IV 10/07/24 09:00 Vital Signs Vital Signs Date Time Temp Pulse Resp B/P (MAP) Pulse Ox O2 Delivery O2 Flow Rate FiO2 10/06/24 10:45 87 130/69 10/06/24 10:17 97.3 15 96 97.3 10/05/24 07:32 Room Air 10/05/24 07:28 0 21 Physical Exam GEN: Age-appropriate female in no acute distress. Alert. HEENT: Normocephalic atraumatic. Moist mucous membranes. Anicteric sclerae. CV: RRR Respiratory: CTAB ABD: Minimal epigastric and right upper quadrant tenderness to palpation with minimal guarding but no rebound. Abdominal ultrasound: Cholelithiasis. Common bile duct 0.5 cm. Labs/Diagnostic Data Labs Test 10/06/24 11:49 10/06/24 05:57 10/05/24 12:47 10/05/24 07:05 Range/Units POC Glucose 148 H 70-106 mg/dl White Blood Count 9.6 # 4.4-10.8 10^3/uL Red Blood Count 4.55 4.0-5.20 10^6/uL Hemoglobin 13.8 12.2-16.2 g/dL Hematocrit 42.3 36.0-46.0 % Mean Corpuscular Volume 92.9 80.0-100.0 fL Mean Corpuscular Hemoglobin 30.4 28.0-32.0 pg Mean Corpuscular Hemoglobin Concent 32.7 32.0-36.0 g/dL Red Cell Distribution Width 15.0 H 11.8-14.3 % Platelet Count 241 140-450 10^3/uL Mean Platelet Volume 9.0 6.9-10.8 fL Neutrophils (%) (Auto) 63.9 37.0-80.0 % Lymphocytes (%) (Auto) 25.1 10.0-50.0 % Monocytes (%) (Auto) 7.9 0.0-12.0 % Eosinophils (%) (Auto) 2.5 0.0-7.0 % Basophils (%) (Auto) 0.6 0.0-2.0 % Neutrophils # (Auto) 6.1 1.6-8.6 10 ^3/uL Lymphocytes # (Auto) 2.4 0.4-5.4 10 ^3/uL Monocytes # (Auto) 0.8 0-1.3 10 ^3/uL Eosinophils # (Auto) 0.2 0-0.8 10 ^3/uL Basophils # (Auto) 0.1 0-0.2 10 ^3/uL Nucleated Red Blood Cells 0.0 % Sodium Level 140 136-145 mmol/L Potassium Level 3.4 L 3.5-5.1 mmol/L Chloride Level 106 98-107 mmol/L Carbon Dioxide Level 25 20-31 mmol/L Anion Gap 9 5-15 Blood Urea Nitrogen 20 9-23 mg/dL Creatinine 2.11 H 0.550-1.02 mg/dL Glomerular Filtration Rate Calc 26 >90 mL/min BUN/Creatinine Ratio 9.5 L 10.0-20.0 Serum Glucose 75 74-106 mg/dL Calcium Level 9.2 8.7-10.4 mg/dL Total Bilirubin 0.4 0.2-1.0 mg/dL Aspartate Amino Transferase (AST) 14 13-40 U/L Alanine Aminotransferase (ALT) 15 7-40 U/L Alkaline Phosphatase 77 46-116 U/L Total Protein 6.7 5.7-8.2 g/dL Albumin 4.0 3.2-4.8 g/dL Triglycerides Level 55 < 150 mg/dL Cholesterol Level 132 < 200 mg/dL LDL Cholesterol 47 < 100 mg/dL HDL Cholesterol 64 H 40-59 mg/dL Beta HCG, Quantitative 4.5 H 1.5-4.2 mIU/mL Lactic Acid Level 1.4 0.4-2.0 mmol/L Test 10/05/24 06:39 10/05/24 03:54 Range/Units Urine Color Light-yellow Yellow Urine Clarity Turbid H Clear Urine pH 5.0 5.0-9.0 Urine Specific Potter 1.021 1.001-1.035 Urine Protein Trace H Negative Urine Ketones Trace Negative Urine Blood 1+ H Negative /uL Urine Nitrite Negative Negative Urine Bilirubin Negative Negative Urine Urobilinogen Normal Negative mg/dL Urine Leukocyte Esterase 3+ Negative /uL Urine RBC 12 0 - 4 /hpf Urine WBC Clumps Present None Seen /hpf Urine Microscopic WBC 91 H 0-5 /HPF Urine Squamous Epithelial Cells Few <5 /hpf Urine Bacteria Few H None Seen /hpf Urine Creatinine 76.24 30.0-125.0 mg/dL Urine Protein/Creatinine Ratio 0.49 Urine Sodium 84 40-220 mmol/L Urine Glucose 4+ H Normal mg/dL Urine Total Protein 37.0 H 1-14 mg/dL Hemoglobin A1c 7.6 H <5.7 % A1C Phosphorus Level 4.0 2.4-5.1 mg/dL Magnesium Level 2.3 1.6-2.6 mg/dL Lipase 65 H 12-53 U/L Microbiology Date/Time Source Procedure Growth Status 10/05/24 07:10 Blood Blood Culture - Preliminary NO GROWTH AFTER 24 HOURS OF INCUBATION. Resulted Assessment 1. Cholecystitis Plan/Recommendation 1. Laparoscopic cholecystectomy possible open surgery Informed consent: The surgery and its risks including but not limited to infection, bleeding requiring possible blood transfusion with the risk of hepatitis or HIV infection, possible open surgery, possible cystic duct leak or retained common bile duct stone requiring further intervention such as an ERCP, possible perioperative AR or stroke were explained to the patient. All questions were answered to her satisfaction. She expressed verbal understanding and wished to proceed with the surgery. Plan discussed with: Patient ALESIA ELLISON MD Oct 06, 2024 12:49
[2024-10-06 13:30] LABS: INR 1.01 (0.9-1.15); Partial Thromboplastin Time 35.8 SEC (24.5-34.5); Prothrombin Time 10.7 sec (9.3-11.8)
--- NOTE | 2024-10-06 14:45 | DVHPNRES ---
Progress Note Date Seen: Oct 06, 2024 Resident Creating Document: MARÍA MCGREGORANABEL RESIDENT Medical Necessity Reason Pt with a Central, PICC or Fol: No Subjective Review of Systems Patient is a 63-year-old female with a past medical history of type 2 diabetes mellitus, hypertension, chronic kidney disease stage 4 came to the ED with a chief complaint of abdominal pain and intractable vomiting. Patient reported that with the night prior to presentation to the hospital patient suddenly started having abdominal pain in the epigastrium in the right upper quadrant in the middle of the night associated with the multiple episodes of vomiting. The vomitus initially had undigested food and later episodes that yellowish fluid but no associated blood. Patient reported the abdominal pain was constant, dull achy pain which lasted until she got to the hospital. Not able to keep anything down initially but symptoms improved in the hospital. Patient also reported 4 episodes of watery diarrhea. While in the hospital patient did not report any episode of vomiting or diarrhea. Patient denied chest pain, shortness of breath, palpitations, headache. Patient was recently seen in the ER about 2 weeks ago for similar abdominal pain and episode of vomiting. Past medical history: Type 2 diabetes mellitus, hypertension, chronic kidney disease stage 4, stroke in 2017 (no residual weakness) Past surgical history: None Social history: Patient lives with the family and denies smoking, alcohol, drug use Home medications: Clopidogrel, losartan 25 mg, metoprolol succinate 50 mg, Jardiance 10 mg, Humalog insulin p.r.n. Review of systems Patient was seen and examined at bedside Patient reports improvement in the abdominal pain but still has mild epigastric, RUQ pain Denies vomiting, diarrhea while in the hospital Reports tolerating food well Objective vital signs Vital Sign Date Time Temp Pulse Resp B/P (MAP) Pulse Ox O2 Delivery O2 Flow Rate FiO2 10/06/24 10:45 87 130/69 10/06/24 10:17 97.3 15 96 97.3 10/05/24 07:32 Room Air 10/05/24 07:28 0 21 Total Intake and Output 10/05/24 10/05/24 10/06/24 15:00 23:00 07:00 Intake Total 210 ml 250 ml 300 ml Balance 210 ml 250 ml 300 ml medications Current Medications Medications Dose Ordered Sig/Ulises Route Start Time Stop Time Status Last Admin Dose Admin Diagnostic Test (Pha) 1 strip ACHS 1/25/25 11:30 10/06/24 12:05 1 STRIP Insulin Human Regular ACHS SC 10/05/24 11:30 10/06/24 12:03 2 UNITS Dextrose 50 ml UD PRN IV 10/05/24 10:00 Ondansetron HCl 4 mg Q4HP PRN IV 10/05/24 10:00 10/06/24 12:31 4 MG Acetaminophen 650 mg Q6HP PRN PO 10/05/24 10:00 Metronidazole 100 ml @ 100 mls/hr Q8HR IV 10/05/24 14:00 10/06/24 05:58 100 MLS/HR Metoprolol Succinate 50 mg DAILY PO 10/06/24 10:00 10/06/24 10:45 50 MG Potassium Chloride 20 meq DAILY PO 10/06/24 10:00 10/06/24 10:36 20 MEQ Clopidogrel Bisulfate 75 mg DAILY PO 10/07/24 10:00 Empaglifozin 10 mg DAILY PO 10/06/24 10:15 10/06/24 11:27 10 MG Ceftriaxone Sodium 50 ml @ 100 mls/hr DAILY@09 IV 10/07/24 09:00 Examination Physical Examination Constitutional: Patient was alert and oriented to time, place and person and does not appear to be in acute distress. Gen - no pallor, no icterus, no cyanosis, no clubbing, no LAD, no edema . Skin - Patients skin is warm and dry. HEENT - normocephalic, atraumatic, moist mucous membranes. Neck - full ROM, no LAD, JVP waveform is not seen. Pulmonary - B/L vesicular breath sounds. no crackles , no wheezing cardiovascular - normal S1,S2 heard. no murmurs heard. GI - soft abdomen with tenderness to palpation in the right upper quadrant on expiration, Ventura's sign positive. no hepatospleenomegaly. Bowel sounds normoactive Neurological - Bilateral upper extremity strength 5/5, bilateral lower extremity strength 5/5, no facial droop, normal speech, no tremor, no sensory deficiets. laboratory and microbiology Laboratory Tests 10/06/24 05:57 Test 10/06/24 05:57 Range/Units Serum Glucose 75 74-106 mg/dL Microbiology Date/Time Source Procedure Growth Status 10/05/24 07:10 Blood Blood Culture - Preliminary NO GROWTH AFTER 24 HOURS OF INCUBATION. Resulted Problem List/Assessment/Plan Problem List/Assessment/Plan Assessment Acute abdominal pain likely biliary colic Recurrent biliary colic, ? Cholecystitis Acute intractable nausea and vomiting Cholelithiasis ?Acute cholecystitis SALLY on CKD stage IV likely hemodynamically mediated due to VMN UTI likely acute cystitis Uncontrolled type 2 diabetes mellitus Hypertensive heart disease with suspected heart failure with preserved EF Hypokalemia Gallbladder ultrasound shows cholelithiasis without evidence of GB wall thickening CT abdomen pelvis without contrast shows cholelithiasis Plan - with a high clinical suspicion of cholecystitis, surgery consulted - cholecystectomy planned for tomorrow 10/07/2024 - patient to be kept NPO - IV antibiotics ceftriaxone plus metronidazole - patient has a history of CKD stage 4, nephrology consulted who recommended strict I&Os and monitoring kidney function - echocardiogram pending - continued on home medication metoprolol succinate 50 mg, labetalol 75 mg, empagliflozin 10 mg Goals of care discussed with the patient for over 25 minutes. Full code Plan discussed with Plan discussed with: Patient My Orders My Orders Orders - ERICA MCGREGOR RESIDENT Procedure Category Date Status Time Urine Bacterial MARLENY 10/06/24 Uncollected Culture 07:39 Potassium Er Tablet PHA 10/06/24 In Process (Klor-Con Tablet) 10:00 Drug Screen LAB 10/06/24 Logged 10:10 Clopidogrel Bisulfate PHA 10/07/24 In Process (Plavix) 10:00 Empagliflozin PHA 10/06/24 In Process (Jardiance) 10:15 Ceftriaxone 1gm/50ml PHA 10/07/24 In Process D5w (Rocephin) 09:00 * Surgical Consult CONS 10/06/24 Transmitted Echo 2d Mode Cardiac US 10/06/24 Logged DOP 11:31 Strict I & O KANDIS 10/06/24 In Process 11:32 Date of Service: Oct 06, 2024 Billing Provider: FREDI NEFF MD Common Visit Codes: [id number] INP/OBS CARE(HIGH) ERICA MCGREGOR RESIDENT Oct 06, 2024 14:45 FREDI NEFF MD Oct 07, 2024 10:47
[2024-10-06 23:39] LABS: Opiate Scree,Urine Neg (NEGATIVE)
[2024-10-06 23:49] LABS: Amphetamine Screen, Urine Neg (NEGATIVE); Barbiturate Scree,Urine Neg (NEGATIVE); Benzodiazephine Screen, Urine Neg (NEGATIVE); Cannabinoid Screen, Urine Neg (NEGATIVE); Cocaine Screen, Urine Neg (NEGATIVE); Phencyclidine Screen, Urine Neg (NEGATIVE)
[2024-10-07] VITALS (9 sets, daily range): BP systolic 135–156; BP diastolic 74–87; PULSE 87–105; RESP 16–22; TEMP 79.8–98.7; O2SAT 95–100
--- NOTE | 2024-10-07 06:47 | DVH ---
EXAM: XR Chest, 1 View CLINICAL INDICATION: pre-op TECHNIQUE: Frontal view of the chest. COMPARISON: None FINDINGS: LUNGS AND PLEURAL SPACES: Unremarkable. No consolidation. No pneumothorax. HEART: Unremarkable. No cardiomegaly. MEDIASTINUM: Unremarkable. Normal mediastinal contour. BONES/JOINTS: Unremarkable. No acute fracture. OTHER FINDINGS: . . IMPRESSION: No acute cardiopulmonary process.
[2024-10-07 07:44] LABS: Basophils # (auto) 0 10 ^3/uL (0-0.2); Basophils % (auto) 0.5 % (0.0-2.0); Eosinophils # (auto) 0.3 10 ^3/uL (0-0.8); Eosinophils % (auto) 4.9 % (0.0-7.0); Hematocrit 43.3 % (36.0-46.0); Hemoglobin 14.2 g/dL (12.2-16.2); Lymphocytes # (auto) 1.9 10 ^3/uL (0.4-5.4); Lymphocytes % (auto) 29.7 % (10.0-50.0); Mean Corpuscular Hemoglobin 30.5 pg (28.0-32.0); Mean Corpuscular Hgb Conc. 32.8 g/dL (32.0-36.0); Monocytes # (auto) 0.5 10 ^3/uL (0-1.3); Monocytes % (auto) 7.2 % (0.0-12.0); Neutrophils # (auto) 3.7 10 ^3/uL (1.6-8.6); Neutrophils % (auto) 57.7 % (37.0-80.0); Platelet Count (auto) 240 10^3/uL (140-450); Red Blood Cells 4.65 10^6/uL (4.0-5.20); Red Cell Distribution Width 15.1 % (11.8-14.3); White Blood Cell 6.4 10^3/uL (4.4-10.8)
[2024-10-07 07:46] LABS: Albumin 4.1 g/dL (3.2-4.8); Alkaline Phosphatase 81 U/L (46-116); Anion Gap 8 (5-15); Aspartate Aminotransferase 15 U/L (13-40); BUN/Creatinine Ratio 6.7 (10.0-20.0); Bilirubin, Total 0.5 mg/dL (0.2-1.0); Blood Urea Nitrogen 12 mg/dL (9-23); Calcium 9.4 mg/dL (8.7-10.4); Carbon Dioxide 22 mmol/L (20-31); Glucose 105 mg/dL (74-106); Potassium 3.9 mmol/L (3.5-5.1); Sodium 138 mmol/L (136-145); Total Protein 6.9 g/dL (5.7-8.2)
[2024-10-07 07:47] LABS: Alanine Aminotransferase < 9 U/L (7-40); Chloride 108 mmol/L (98-107)
[2024-10-07] MEDS ORDERED: fentaNYL CITRATE 100 MCG/2 ML VL ONE (08:21)
--- NOTE | 2024-10-07 08:21 | DVHSR ---
APPROVED REPORT EXAM: Two-dimensional and M-mode echocardiogram with Doppler and color Doppler. Blood Pressure: 130/69 mmHg INDICATION H/O CHF? RISK FACTORS Height: 5'7", Weight: 200 DIMENSIONS LVDd3.5 (3.8-5.7cm)LA (2D)3.2 (1.9-4.0cm)Aortic Root3.2 (2.0-3.7cm) LVDs2.4 (2.5-4.0cm)LA (MM) (1.9-4.0cm)Aortic Cusp Exc1.7 (1.5-2.0cm) EF (%) 60.0 (55-70%)Rt. Atrium3.7 (1.9-4.0cm)Asc. Aorta cm IVSd1.0 (0.7-1.1cm)RV (D) (1.8-2.4cm) PWd1.0 (0.7-1.1cm) Mitral Valve MitralMitral Stenosis E wave0.80m/sMV Mean GR.mmHg A wave0.82m/sMV Peak GR.mmHg E/A ratio1.02D MVAcm2 DECEL [id number] 1/2 Timems Aortic Valve Aortic ValveAortic Stenosis V10.72m/Filiberto Mean GR.2mmHg V21.02m/Filiberto Peak GR.4mmHg LVOT Diameter1.8 (1.8-2.4cm)Doppler AVA1.80cm2 Pulmonic Valve V20.67m/s Tricuspid Valve TR Velocity2.52m/s [id number] LEFT VENTRICLE The left ventricle is of normal size. Wall thickness is normal. Ejection fraction is normal and is estimated at 60%. There is no gross wall motion abnormalities. Diastolic function is preserved. E to E prime ratio is in the normal range. RIGHT VENTRICLE The right ventricle is of normal size. Systolic function is normal. ATRIA Both atria are of normal size. Intra-atrial septum is not well visualized. MITRAL VALVE Normal structure and function. No significant mitral regurgitation. PULMONIC VALVE Likely normal. TRICUSPID VALVE Normal structure and function. There is mild tricuspid regurgitation. PA systolic pressure is estim ated at 30-35 mm Hg. AORTIC VALVE Normal structure and function. GREAT VESSELS Aortic root is of normal size. Proximal ascending aorta isn't visualized. PERICARDIAL EFFUSION No significant pericardial effusion. IVC is of normal size and collapses normally with inspiration. Conclusion Normal left ventricular size and systolic function. Ejection fraction is estimated at 60%. Normal right ventricular size and systolic function. No hemodynamically significant valvular disease. PA systolic pressure is estimated at 30-35 mm Hg. No significant pericardial effusion.
[2024-10-07] MEDS ORDERED: PROPOFOL 10 MG/ML 20 ML IV ONE (08:22)
[2024-10-07] MEDS ORDERED: SUCCINYLCHOLINE CHLORIDE 20 MG/ML 10ML VIAL IV ONE (08:28)
[2024-10-07] MEDS ORDERED: ceFAZolin 2 GM/D5W100ml 100 ML IV ONE (08:45)
[2024-10-07] MEDS: cefTRIAXone 1GM/50ML D5W 50 ML IV SCH (08:52)
[2024-10-07] MEDS ORDERED: MEPERIDINE HCL (25 MG/ML) 1ML VIAL ONE (09:14)
[2024-10-07] MEDS ORDERED: DexAMETHasone SOD PHOS 10MG/1ML VIAL INJ ONE (09:21)
[2024-10-07] MEDS ORDERED: ONDANSETRON HCL 4 MG/2 ML VIAL ONE (09:21)
[2024-10-07] MEDS ORDERED: ePHEDrine SULFATE 50 MG/ML AMP ONE (09:22)
[2024-10-07] MEDS ORDERED: SUGAMMADEX 200mg/2ml Vial (100MG/ML) IV ONE (09:37)
--- NOTE | 2024-10-07 09:37 | ECG ---
[facility] Test Date: 2024-10-05 Test Time: 03:33:47 Pat Name: TREVER SCOTT Department: er Room: 0279 A Gender: F Radiophone Operator: : 1960 Requested By: KELLI SWENSON Order Number: [id number] Reading MD: Luis Alberto Peña Measurements Intervals [place] Rate: 90 P: 63 PA: 128 QRS: 70 QRSD: 90 T: -18 QT: 397 QTc: 486 Interpretive Statements Sinus rhythm Borderline T abnormalities, inferior leads Borderline prolonged QT interval Electronically Signed On 10-09-2024 8:47:21 PST by Luis Alberot Peña Please click the below link to view image of tracing.
--- NOTE | 2024-10-07 09:52 | DVHOP2 ---
Operative Report - 2 Report Details Date: 10/07/24 Preop Diagnosis: 1. Cholecystitis Postop Diagnosis: Same Surgeon: Otoniel Medrano MD Chemical Production Machine Operator: None Anesthesiologist: Dr. Juarez Anesthesia: General, Local Consent: The surgery and its risks including but not limited to infection, bleeding requiring possible blood transfusion with the risk of hepatitis or HIV infection, possible open surgery, possible cystic duct leak or retained common bile duct stone requiring further intervention such as an ERCP, possible perioperative [place] or stroke were explained to the patient. All questions were answered to her satisfaction. She expressed verbal understanding and wished to proceed with the surgery. Complications: None Estimated Blood Loss: 20 mL Fluids: 600 mL crystalloids Name of Procedure Performed Laparoscopic cholecystectomy Procedure Details Procedure Details: After induction of general anesthesia, patient's abdomen was prepped and draped in standard surgical fashion. A small supraumbilical incision was made and this incision was taken through the abdominal wall down to the fascia which was opened using electrocautery. Peritoneum was then bluntly divided gaining access to the intra-abdominal cavity. Interrupted 0 Vicryl sutures were placed through the fascial incision and using an open technique, Hanny trocar was introduced and secured using the Vicryl sutures. Abdomen was insufflated to 15 mmHg and camera was inserted. Visual examination of the intestine under the fascial incision appeared normal without injury. Under direct visualization, a 5 mm bladeless trocar was placed in the subxiphoid region and two additional 5 mm bladeless trocars were placed in the right upper quadrant all under direct vis ualization. Examination of the right upper quadrant revealed slightly distended gallbladder which was grasped and retracted in a cephalad direction. Infundibulum was retracted laterally and careful blunt dissection was performed to identify the cystic duct which appeared normal in size. This was clipped and divided using Endoclips without complication. The cystic artery was located just next to the cystic duct and this was also clipped and divided using Endoclips without complication. Gallbladder was then removed from the liver bed using electrocautery and there was no bile or stone spillage during the maneuver. Gallbladder was then removed from the abdominal cavity using an endo pouch bag and sent off the surgical field. Abdomen was then re-insufflated and hemostasis in the liver bed was achieved using electrocautery. Right upper quadrant was then well irrigated until the fluid was clear. Trocars were then removed under direct visualization as the abdomen was deflated. Additional interrupted 0 Vicryl sutures were placed through the supraumbilical fascial incision and all sutures were tied down closing off the supraumbilical fascia. Surgical sites were irrigated injected with 20 mL of 1% lidocaine with epinephrine. Skin incisions were closed using brandon. Surgical sites were cleaned and dried and dressings were applied. Sponge, needle, instrument count at the end of the case were reported to be correct by the nursing staff. The patient tolerated procedure well and was awakened, extubated and transferred to recovery in stable condition. Specimen: Gallbladder Condition Stable Disposition Still a Patient OTONIEL MEDRANO MD Oct 07, 2024 09:52
[2024-10-07] MEDS ORDERED: MEPERIDINE HCL (25 MG/ML) 1ML VIAL IV PRN (10:00)
[2024-10-07] MEDS ORDERED: HYDROmorphone HCL 2 MG/ML VL/or syr IV PRN (10:00)
[2024-10-07] MEDS ORDERED: hydrALAZINE HCL 20 MG/ML VL IV PRN (10:00)
[2024-10-07] MEDS ORDERED: ACETAMINOPHEN IV 1000 MG/100ML (10MG/ML) IV PRN (10:00)
[2024-10-07] MEDS: CLOPIDOGREL BISULFATE 75 MG TAB PO SCH (10:00)
[2024-10-07] MEDS ORDERED: ONDANSETRON HCL 4 MG/2 ML VIAL IV ONE (10:00)
--- NOTE | 2024-10-07 11:21 | CONS ---
Pharmacy Clinical Information: From Heart Failure Fallout Report on CQM Application, McgrathKrysta is a 63 year old female with PMH of HTN, DM, CKD, cholelithiasis. Her home medications include rosuvastatin 20 mg PO QD. Patient currently NPO due to procedure. Consider resuming statin if patient can tolerate PO since LFTs are WNL. ANISA BULLARD PHARMACIST Oct 07, 2024 11:21
[2024-10-07] MEDS ORDERED: MORPHINE SULFATE 4 MG/ML SYR/VIAL IV PRN (12:00)
[2024-10-07] MEDS: MORPHINE SULFATE INJ 2 MG/ml SYRG IV PRN (12:15)
--- NOTE | 2024-10-07 19:39 | DVHPNRES ---
Progress Note Date Seen: Oct 07, 2024 Resident Creating Document: JHGeradrJERICA Ruvalcaba RESIDENT Medical Necessity Reason Pt with a Central, PICC or Fol: No Subjective Review of Systems Patient seen and examined at bedside Status post laparoscopic cholecystectomy Reports mild abdominal discomfort. Denies nausea, vomiting Denied passing gas or bowel movement as of in the morning Objective vital signs Vital Sign Date Time Temp Pulse Resp B/P (MAP) Pulse Ox O2 Delivery O2 Flow Rate FiO2 10/07/24 17:32 89 17 146/78 10/07/24 16:57 98.0 96 98.0 10/07/24 09:48 Mask 6.0 100 Total Intake and Output 10/06/24 10/06/24 10/07/24 15:00 23:00 07:00 Intake Total 180 ml 500 ml 345 ml Output Total 200 ml Balance 180 ml 500 ml 145 ml medications Current Medications Medications Dose Ordered Sig/Ulises Route Start Time Stop Time Status Last Admin Dose Admin Diagnostic Test (Pha) 1 strip ACHS 10/05/24 11:30 10/07/24 16:31 1 STRIP Insulin Human Regular ACHS SC 10/05/24 11:30 10/07/24 16:57 3 UNITS Dextrose 50 ml UD PRN IV 10/05/24 10:00 Ondansetron HCl 4 mg Q4HP PRN IV 10/05/24 10:00 10/07/24 16:58 4 MG Acetaminophen 650 mg Q6HP PRN PO 10/05/24 10:00 Metronidazole 100 ml @ 100 mls/hr Q8HR IV 10/05/24 14:00 10/07/24 14:09 100 MLS/HR Metoprolol Succinate 50 mg DAILY PO 10/06/24 10:00 10/07/24 12:14 50 MG Clopidogrel Bisulfate 75 mg DAILY PO 10/07/24 10:00 Empaglifozin 10 mg DAILY PO 10/06/24 10:15 10/06/24 11:27 10 MG Ceftriaxone Sodium 50 ml @ 100 mls/hr DAILY@09 IV 10/07/24 09:00 Morphine Sulfate 2 mg Q4HPRN PRN IV 10/07/24 12:00 10/07/24 17:02 2 MG Morphine Sulfate 4 mg Q4HPRN PRN IV 10/07/24 12:00 Examination Constitutional: Patient was alert and oriented to time, place and person and does not appear to be in acute distress. Gen - no pallor, no icterus, no cyanosis, no clubbing, no LAD, no edema . Skin - Patients skin is warm and dry. HEENT - normocephalic, atraumatic, moist mucous membranes. Neck - full ROM, no LAD, JVP waveform is not seen. Pulmonary - B/L vesicular breath sounds. no crackles , no wheezing cardiovascular - normal S1,S2 heard. no murmurs heard. GI - patient was abdominal binder status post laparoscopic cholecystectomy. Neurological - Bilateral upper extremity strength 5/5, bilateral lower extremity strength 5/5, no facial droop, normal speech, no tremor, no sensory deficiets. laboratory and microbiology Laboratory Tests 10/07/24 06:59 Test 10/07/24 06:59 Range/Units Serum Glucose 105 74-106 mg/dL Microbiology Date/Time Source Procedure Growth Status 10/05/24 07:10 Blood Blood Culture - Preliminary NO GROWTH AFTER 48 HOURS OF INCUBATION. Resulted Problem List/Assessment/Plan Problem List/Assessment/Plan Assessment Acute abdominal pain likely biliary colic Recurrent biliary colic, ? Cholecystitis Acute intractable nausea and vomiting Cholelithiasis ?Acute cholecystitis SALLY on CKD stage IV likely hemodynamically mediated due to VMN UTI likely acute cystitis Uncontrolled type 2 diabetes mellitus Hypertensive heart disease with suspected heart failure with preserved EF Hypokalemia Gallbladder ultrasound shows cholelithiasis without evidence of GB wall thickening CT abdomen pelvis without contrast shows cholelithiasis Plan - with a high clinical suspicion of cholecystitis, surgery consulted - laparoscopic cholecystectomy done today - patient on clear liquid diet - IV antibiotics ceftriaxone plus metronidazole - patient has a history of CKD stage 4, nephrology consulted who recommended strict I&Os and monitoring kidney function - echocardiogram shows LVEF 60% - continued on home medication metoprolol succinate 50 mg, labetalol 75 mg, empagliflozin 10 mg Goals of care discussed with the patient for over 25 minutes. Full code Plan discussed with Plan discussed with: Patient Date of Service: Oct 07, 2024 Billing Provider: BRODY BLANKENSHIP MD Common Visit Codes: [id number] INP/OBS CARE(HIGH) ERICA MCGREGOR RESIDENT Oct 07, 2024 19:39 BRODY BLANKENSHIP MD Oct 09, 2024 09:38
[2024-10-08] VITALS (7 sets, daily range): BP systolic 138–172; BP diastolic 72–82; PULSE 84–101; RESP 16–18; TEMP 97.9–98.3; O2SAT 93–99
[2024-10-08 08:13] LABS: Basophils # (auto) 0 10 ^3/uL (0-0.2); Basophils % (auto) 0.1 % (0.0-2.0); Eosinophils # (auto) 0 10 ^3/uL (0-0.8); Hemoglobin 13.5 g/dL (12.2-16.2); Lymphocytes # (auto) 1.7 10 ^3/uL (0.4-5.4); Lymphocytes % (auto) 14.8 % (10.0-50.0); Mean Corpuscular Hemoglobin 30.3 pg (28.0-32.0); Mean Corpuscular Hgb Conc. 32.8 g/dL (32.0-36.0); Mean Corpuscular Volume 92.3 fL (80.0-100.0); Monocytes # (auto) 0.9 10 ^3/uL (0-1.3); Monocytes % (auto) 8.2 % (0.0-12.0); Neutrophils # (auto) 8.6 10 ^3/uL (1.6-8.6); Neutrophils % (auto) 76.9 % (37.0-80.0); Nucleated Red Blood Cells % 0.1 %; Platelet Count (auto) 239 10^3/uL (140-450); Red Blood Cells 4.45 10^6/uL (4.0-5.20); Red Cell Distribution Width 14.8 % (11.8-14.3); White Blood Cell 11.1 10^3/uL (4.4-10.8)
[2024-10-08 08:27] LABS: Alanine Aminotransferase 10 U/L (7-40); Alkaline Phosphatase 75 U/L (46-116); Anion Gap 10 (5-15); Aspartate Aminotransferase 24 U/L (13-40); BUN/Creatinine Ratio 7.9 (10.0-20.0); Blood Urea Nitrogen 15 mg/dL (9-23); Calcium 9.3 mg/dL (8.7-10.4); Carbon Dioxide 22 mmol/L (20-31); Sodium 139 mmol/L (136-145)
[2024-10-08 08:28] LABS: Bilirubin, Total 0.3 mg/dL (0.2-1.0); Total Protein 6.7 g/dL (5.7-8.2)
[2024-10-08 08:30] LABS: Chloride 107 mmol/L (98-107); Glucose 117 mg/dL (74-106)
--- NOTE | 2024-10-08 21:38 | DVHPNRES ---
Progress Note Date Seen: Oct 08, 2024 Resident Creating Document: MARÍA MCGREGORANABEL RESIDENT Medical Necessity Reason Pt with a Central, PICC or Fol: No Subjective Review of Systems Status post laparoscopic cholecystectomy Reports mild abdominal discomfort. Denies nausea, vomiting Denied passing gas or bowel movement as of in the morning Tolerating clear liquid diet well Objective vital signs Vital Sign Date Time Temp Pulse Resp B/P (MAP) Pulse Ox O2 Delivery O2 Flow Rate FiO2 10/08/24 16:59 98.3 87 16 138/72 (94) 93 98.3 10/08/24 08:00 Room Air* 0 21 Total Intake and Output 10/07/24 10/07/24 10/08/24 15:00 23:00 07:00 Intake Total 25 ml 400 ml 300 ml Balance 25 ml 400 ml 300 ml medications Current Medications Medications Dose Ordered Sig/Ulises Route Start Time Stop Time Status Last Admin Dose Admin Diagnostic Test (Pha) 1 strip ACHS 10/05/24 11:30 10/08/24 16:45 1 STRIP Insulin Human Regular ACHS SC 10/05/24 11:30 10/08/24 16:51 2 UNITS Dextrose 50 ml UD PRN IV 10/05/24 10:00 Ondansetron HCl 4 mg Q4HP PRN IV 10/05/24 10:00 10/08/24 09:24 4 MG Acetaminophen 650 mg Q6HP PRN PO 10/05/24 10:00 Metronidazole 100 ml @ 100 mls/hr Q8HR IV 10/05/24 14:00 10/08/24 16:51 100 MLS/HR Metoprolol Succinate 50 mg DAILY PO 10/06/24 10:00 10/08/24 09:25 50 MG Clopidogrel Bisulfate 75 mg DAILY PO 10/07/24 10:00 Empaglifozin 10 mg DAILY PO 10/06/24 10:15 10/08/24 09:25 10 MG Ceftriaxone Sodium 50 ml @ 100 mls/hr DAILY@09 IV 10/07/24 09:00 10/08/24 09:24 100 MLS/HR Morphine Sulfate 2 mg Q4HPRN PRN IV 10/07/24 12:00 10/08/24 09:30 2 MG Morphine Sulfate 4 mg Q4HPRN PRN IV 10/07/24 12:00 Examination Constitutional: Patient was alert and oriented to time, place and person and does not appear to be in acute distress. Gen - no pallor, no icterus, no cyanosis, no clubbing, no LAD, no edema . Skin - Patients skin is warm and dry. HEENT - normocephalic, atraumatic, moist mucous membranes. Neck - full ROM, no LAD, JVP waveform is not seen. Pulmonary - B/L vesicular breath sounds. no crackles , no wheezing cardiovascular - normal S1,S2 heard. no murmurs heard. GI - patient was abdominal binder status post laparoscopic cholecystectomy. soft abdomen. mild tenderness to deep palpation Bowel sounds normoactive Neurological - Bilateral upper extremity strength 5/5, bilateral lower extremity strength 5/5, no facial droop, normal speech, no tremor, no sensory deficiets. laboratory and microbiology Laboratory Tests 10/08/24 07:38 Test 10/08/24 07:38 Range/Units Serum Glucose 117 H 74-106 mg/dL Microbiology Date/Time Source Procedure Growth Status 10/06/24 23:07 Urine - Midstream Clean Catch Urine Culture - Preliminary Resulted 10/05/24 07:10 Blood Blood Culture - Preliminary NO GROWTH AFTER 72 HOURS OF INCUBATION. Resulted Problem List/Assessment/Plan Problem List/Assessment/Plan Assessment Acute abdominal pain likely biliary colic Recurrent biliary colic, ? Cholecystitis Acute intractable nausea and vomiting Cholelithiasis ?Acute cholecystitis SALLY on CKD stage IV likely hemodynamically mediated due to VMN UTI likely acute cystitis Uncontrolled type 2 diabetes mellitus Hypertensive heart disease with suspected heart failure with preserved EF Hypokalemia Gallbladder ultrasound shows cholelithiasis without evidence of GB wall thickening CT abdomen pelvis without contrast shows cholelithiasis Plan - with a high clinical suspicion of cholecystitis, surgery consulted - laparoscopic cholecystectomy done today - patient on clear liquid diet - IV antibiotics ceftriaxone plus metronidazole - patient has a history of CKD stage 4, nephrology consulted who recommended strict I&Os and monitoring kidney function - echocardiogram shows LVEF 60% - continued on home medication metoprolol succinate 50 mg, labetalol 75 mg, empagliflozin 10 mg Goals of care discussed with the patient for over 21 minutes. Full code Plan discussed with Plan discussed with: Patient Date of Service: Oct 08, 2024 Billing Provider: BRODY BLANKENSHIP MD Common Visit Codes: [id number] INP/OBS CARE(HIGH) JHAJJ,SARPUNEET RESIDENT Oct 08, 2024 21:38 BRODY BLANKENSHIP MD Oct 09, 2024 09:39
[2024-10-08] MEDS: SODIUM CHLORIDE 0.9% 500 ML IV ONE (21:45)
[2024-10-09 01:00] VITALS: BP 163/92; PULSE 84; RESP 18; TEMP 98.1; O2SAT 100
[2024-10-09 05:00] VITALS: BP 142/75; PULSE 98; RESP 18; TEMP 97.6; O2SAT 98
[2024-10-09 06:39] LABS: Basophils # (auto) 0 10 ^3/uL (0-0.2); Basophils % (auto) 0.3 % (0.0-2.0); Eosinophils # (auto) 0.3 10 ^3/uL (0-0.8); Eosinophils % (auto) 3.8 % (0.0-7.0); Hematocrit 44.6 % (36.0-46.0); Hemoglobin 14.9 g/dL (12.2-16.2); Lymphocytes # (auto) 2.4 10 ^3/uL (0.4-5.4); Lymphocytes % (auto) 27.9 % (10.0-50.0); Mean Corpuscular Hemoglobin 30.7 pg (28.0-32.0); Mean Corpuscular Hgb Conc. 33.3 g/dL (32.0-36.0); Mean Corpuscular Volume 92.2 fL (80.0-100.0); Monocytes # (auto) 0.5 10 ^3/uL (0-1.3); Monocytes % (auto) 6.3 % (0.0-12.0); Neutrophils # (auto) 5.2 10 ^3/uL (1.6-8.6); Neutrophils % (auto) 61.7 % (37.0-80.0); Nucleated Red Blood Cells % 0.1 %; Platelet Count (auto) 274 10^3/uL (140-450); Red Blood Cells 4.84 10^6/uL (4.0-5.20); Red Cell Distribution Width 15.5 % (11.8-14.3); White Blood Cell 8.4 10^3/uL (4.4-10.8)
[2024-10-09 06:43] LABS: Anion Gap 10 (5-15); Carbon Dioxide 24 mmol/L (20-31); Chloride 106 mmol/L (98-107); Potassium 3.9 mmol/L (3.5-5.1); Sodium 140 mmol/L (136-145)
[2024-10-09 06:44] LABS: Calcium 9.9 mg/dL (8.7-10.4)
[2024-10-09 06:49] LABS: BUN/Creatinine Ratio 6.9 (10.0-20.0); Blood Urea Nitrogen 12 mg/dL (9-23)
[2024-10-09 06:50] LABS: Glucose 115 mg/dL (74-106)
[2024-10-09 09:00] VITALS: BP 162/73; PULSE 100; RESP 18; TEMP 98.4; O2SAT 98
[2024-10-09 12:02] VITALS: BP 145/95; PULSE 100; RESP 18; TEMP 98; O2SAT 96
--- NOTE | 2024-10-09 12:09 | DVH ---
Date: 10/09/2024 11:31 AM Examination: XY KUB ABDOMEN SINGLE VIEW History: s/p cholecystectomy day 3, no flatus, no bowel movement Comparison: None TECHNIQUE: Frontal views of the abdomen was obtained. FINDINGS: Nonspecific bowel-gas pattern. The lung bases are unremarkable. No acute osseous abnormality identified. IMPRESSION: Nonspecific bowel gas pattern. Postsurgical changes. Surgical brandon present
[2024-10-09] MEDS: POLYETHYLENE GLYCOL 17 GM PWDR PO ONE (14:56)
[2024-10-09 16:12] VITALS: BP 167/87; PULSE 101; TEMP 98.6
[2024-10-09 17:00] VITALS: BP 125/65; PULSE 104; RESP 19; TEMP 97.8; O2SAT 99
[2024-10-09] MEDS ORDERED: POLY335015 PO (17:19)
[2024-10-09] MEDS ORDERED: ZOFR4T PO (17:47)
[2024-10-09] MEDS ORDERED: IBUP-1454 PO (17:47)
[2024-10-09] MEDS: traMADol HCL 50 MG TAB PO ONE (18:30)
[2024-10-09] MEDS ORDERED: TRAM-626 PO (18:41)
--- NOTE | 2024-10-09 21:58 | DVHDSRES ---
Discharge Summary Date of Admission Resident Creating Document: ERICA MCGREGOR RESIDENT Oct 05, 2024 at 09:58 Date of Discharge: Oct 09, 2024 Admitting Diagnosis Intractable abdominal pain Leukocytosis likely due to UTI Glucosuria SALLY on CKD4 Elevated lipas\\ Diabetes type 2 uncontrolled Chronic hypertension History of cholelithiasis Bilateral pars defects with grade 1 anterolisthesis at L5-S1. Uterine fibroids Small hiatal hernia Echogenic lesion within the right hepatic lobe likely represents hemangioma Wounds: S/P Laparoscopic cholecystectomy wounds Labs/Diagnostic Data: Laboratory Results Test 10/09/24 16:48 10/09/24 04:43 10/08/24 07:38 10/06/24 23:07 POC Glucose 137 mg/dl (70-106) White Blood Count 8.4 10^3/uL (4.4-10.8) Red Blood Count 4.84 10^6/uL (4.0-5.20) Hemoglobin 14.9 g/dL (12.2-16.2) Hematocrit 44.6 % (36.0-46.0) Mean Corpuscular Volume 92.2 fL (80.0-100.0) Mean Corpuscular Hemoglobin 30.7 pg (28.0-32.0) Mean Corpuscular Hemoglobin Concent 33.3 g/dL (32.0-36.0) Red Cell Distribution Width 15.5 % (11.8-14.3) Platelet Count 274 10^3/uL (140-450) Mean Platelet Volume 9.1 fL (6.9-10.8) Neutrophils (%) (Auto) 61.7 % (37.0-80.0) Lymphocytes (%) (Auto) 27.9 % (10.0-50.0) Monocytes (%) (Auto) 6.3 % (0.0-12.0) Eosinophils (%) (Auto) 3.8 % (0.0-7.0) Basophils (%) (Auto) 0.3 % (0.0-2.0) Neutrophils # (Auto) 5.2 10 ^3/uL (1.6-8.6) Lymphocytes # (Auto) 2.4 10 ^3/uL (0.4-5.4) Monocytes # (Auto) 0.5 10 ^3/uL (0-1.3) Eosinophils # (Auto) 0.3 10 ^3/uL (0-0.8) Basophils # (Auto) 0 10 ^3/uL (0-0.2) Nucleated Red Blood Cells 0.1 % Sodium Level 140 mmol/L (136-145) Potassium Level 3.9 mmol/L (3.5-5.1) Chloride Level 106 mmol/L (98-107) Carbon Dioxide Level 24 mmol/L (20-31) Anion Gap 10 (5-15) Blood Urea Nitrogen 12 mg/dL (9-23) Creatinine 1.74 mg/dL (0.550-1.02) Glomerular Filtration Rate Calc 33 mL/min (>90) BUN/Creatinine Ratio 6.9 (10.0-20.0) Serum Glucose 115 mg/dL (74-106) Calcium Level 9.9 mg/dL (8.7-10.4) Total Bilirubin 0.3 mg/dL (0.2-1.0) Aspartate Amino Transferase (AST) 24 U/L (13-40) Alanine Aminotransferase (ALT) 10 U/L (7-40) Alkaline Phosphatase 75 U/L (46-116) Total Protein 6.7 g/dL (5.7-8.2) Albumin 4.0 g/dL (3.2-4.8) Urine Opiates Screen Neg (NEGATIVE) Urine Fentanyl Screen Neg (NEGATIVE) Urine Barbiturates Screen Neg (NEGATIVE) Urine Phencyclidine Screen Neg (NEGATIVE) Urine Amphetamines Screen Neg (NEGATIVE) Urine Benzodiazepines Screen Neg (NEGATIVE) Urine Cocaine Screen Neg (NEGATIVE) Urine Cannabinoids Screen Neg (NEGATIVE) Test 10/06/24 12:50 10/06/24 05:57 10/05/24 12:47 10/05/24 07:05 Prothrombin Time 10.7 sec (9.3-11.8) Prothrombin Time INR 1.01 (0.9-1.15) Activated Partial Thromboplast Time 35.8 SEC (24.5-34.5) Triglycerides Level 55 mg/dL (< 150) Cholesterol Level 132 mg/dL (< 200) LDL Cholesterol 47 mg/dL (< 100) HDL Cholesterol 64 mg/dL (40-59) Beta HCG, Quantitative 4.5 mIU/mL (1.5-4.2) Vitamin D 25-Hydroxy 42.8 ng/mL (30.0-100) Lactic Acid Level 1.4 mmol/L (0.4-2.0) Test 10/05/24 06:39 10/05/24 03:54 Urine Color Light-yellow (Yellow) Urine Clarity Turbid (Clear) Urine pH 5.0 (5.0-9.0) Urine Specific [place] 1.021 (1.001-1.035) Urine Protein Trace (Negative) Urine Ketones Trace (Negative) Urine Blood 1+ /uL (Negative) Urine Nitrite Negative (Negative) Urine Bilirubin Negative (Negative) Urine Urobilinogen Normal mg/dL (Negative) Urine Leukocyte Esterase 3+ /uL (Negative) Urine RBC 12 /hpf (0 - 4) Urine WBC Clumps Present /hpf (None Seen) Urine Microscopic WBC 91 /HPF (0-5) Urine Squamous Epithelial Cells Few /hpf (<5) Urine Bacteria Few /hpf (None Seen) Urine Creatinine 76.24 mg/dL (30.0-125.0) Urine Protein/Creatinine Ratio 0.49 Urine Sodium 84 mmol/L (40-220) Urine Glucose 4+ mg/dL (Normal) Urine Total Protein 37.0 mg/dL (1-14) Hemoglobin A1c 7.6 % A1C (<5.7) Phosphorus Level 4.0 mg/dL (2.4-5.1) Magnesium Level 2.3 mg/dL (1.6-2.6) Lipase 65 U/L (12-53) Parathyroid Hormone (Intact) 28.7 pg/mL (18.4-80.1) Other Laboratory Tests 10/09/24 04:43 Brief Hx & Hospital Course: Patient is a 63-year-old female with a past medical history of type 2 diabetes mellitus, hypertension, chronic kidney disease stage 4 came to the ED with a chief complaint of abdominal pain and intractable vomiting. Patient reported that with the night prior to presentation to the hospital patient suddenly started having abdominal pain in the epigastrium in the right upper quadrant in the middle of the night associated with the multiple episodes of vomiting. The vomitus initially had undigested food and later episodes that yellowish fluid but no associated blood. Patient reported the abdominal pain was constant, dull achy pain which lasted until she got to the hospital. Not able to keep anything down initially but symptoms improved in the hospital. Patient also reported 4 episodes of watery diarrhea. While in the hospital patient did not report any episode of vomiting or diarrhea. Patient denied chest pain, shortness of breath, palpitations, headache. Patient was recently seen in the ER about 2 weeks ago for similar abdominal pain and episode of vomiting. Past medical history: Type 2 diabetes mellitus, hypertension, chronic kidney disease stage 4, stroke in 2017 (no residual weakness) Past surgical history: None Social history: Patient lives with the family and denies smoking, alcohol, drug use Home medications: Clopidogrel, losartan 25 mg, metoprolol succinate 50 mg, Jardiance 10 mg, Humalog insulin p.r.n. Brief hospital course Patient was admitted to the hospital with recurrent abdominal pain and episodes of nausea and vomiting, CT abdomen pelvis without contrast showed cholelithiasis without gallbladder wall thickening and gallbladder ultrasound showed cholelithiasis without gallbladder wall thickening but given high clinical suspicion with a positive [place] swelling surgery was consulted who recommended patient to undergo laparoscopic cholecystectomy. Patient underwent a successful laparoscopic cholecystectomy with the removal of the gallbladder. Patient was started on clear liquid diet which she tolerated well without nausea or vomiting and diet was advanced to full liquid diet which she tolerated well and the patient had bowel movement. Patient was discharged in stable condition to home. Discharge plan Follow up in the surgery outpatient clinic with in 1 week as scheduled Medications: Zofran p.r.n. for nausea, ibuprofen for pain, tramadol for pain Continued on home medications Patient advised to continue on full liquid diet for 5-7 days and advance diet as tolerated. Consults/Reason for consult Surgery consultation for biliary colic ?Acute cholecystitis Operations or Procedures Operative Report - 2 Report Details Date: 10/07/24 Preop Diagnosis: 1. Cholecystitis Postop Diagnosis: Same Surgeon: Alesia Ellison MD Casework Manager: None Anesthesiologist: Dr. Juarez Anesthesia: General, Local Consent: The surgery and its risks including but not limited to infection, bleeding requiring possible blood transfusion with the risk of hepatitis or HIV infection, possible open surgery, possible cystic duct leak or retained common bile duct stone requiring further intervention such as an ERCP, possible perioperative SC or stroke were explained to the patient. All questions were answered to her satisfaction. She expressed verbal understanding and wished to proceed with the surgery. Complications: None Estimated Blood Loss: 20 mL Fluids: 600 mL crystalloids Name of Procedure Performed Laparoscopic cholecystectomy Procedure Details Procedure Details: After induction of general anesthesia, patient's abdomen was prepped and draped in standard surgical fashion. A small supraumbilical incision was made and this incision was taken through the abdominal wall down to the fascia which was opened using electrocautery. Peritoneum was then bluntly divided gaining access to the intra-abdominal cavity. Interrupted 0 Vicryl sutures were placed through the fascial incision and using an open technique, Hanny trocar was introduced and secured using the Vicryl sutures. Abdomen was insufflated to 15 mmHg and camera was inserted. Visual examination of the intestine under the fascial incision appeared normal without injury. Under direct visualization, a 5 mm bladeless trocar was placed in the subxiphoid region and two additional 5 mm bladeless trocars were placed in the right upper quadrant all under direct visualization. Examination of the right upper quadrant revealed slightly distended gallbladder which was grasped and retracted in a cephalad direction. Infundibulum was retracted laterally and careful blunt dissection was performed to identify the cystic duct which appeared normal in size. This was clipped and divided using Endoclips without complication. The cystic artery was located just next to the cystic duct and this was also clipped and divided using Endoclips without complication. Gallbladder was then removed from the liver bed using electrocautery and there was no bile or stone spillage during the maneuver. Gallbladder was then removed from the abdominal cavity using an endo pouch bag and sent off the surgical field. Abdomen was then re-insufflated and hemostasis in the liver bed was achieved using electrocautery. Right upper quadrant was then well irrigated until the fluid was clear. Trocars were then removed under direct visualization as the abdomen was deflated. Additional interrupted 0 Vicryl sutures were placed through the supraumbilical fascial incision and all sutures were tied down closing off the supraumbilical fascia. Surgical sites were irrigated injected with 20 mL of 1% lidocaine with epinephrine. Skin incisions were closed using brandon. Surgical sites were cleaned and dried and dressings were applied. Sponge, needle, instrument count at the end of the case were reported to be correct by the nursing staff. The patient tolerated procedure well and was awakened, extubated and transferred to recovery in stable condition. Specimen: Gallbladder ALESIA ELLISON MD Echocardiogram Conclusion Normal left ventricular size and systolic function. Ejection fraction is estimated at 60%. Normal right ventricular size and systolic function. No hemodynamically significant valvular disease. PA systolic pressure is estimated at 30-35 mm Hg. No significant pericardial effusion. GallBladder US FINDINGS: The liver appears relatively normal in echotexture. There is a echogenic lesion within the right hepatic lobe measuring 1.4 x 1.4 x 1.3 cm. There is cholelithiasis without evidence of gallbladder wall thickening or pericholecystic fluid. The common bile duct estimates 0.5 cm. The right kidney measures 7.9 cm. The left kidney measures 8.9 cm. No hydronephrosis. The kidneys appear otherwise unremarkable IMPRESSION: 1. Echogenic lesion within the right hepatic lobe likely represents hemangioma as detailed previously. CT hepatic protocol would be confirmatory. 2. Cholelithiasis 3. No significant interval change CT abdomen pelvis without contrast FINDINGS: Evaluation of solid organs is limited due to lack of intravenous contrast use. Findings: Imaged portions of the lung bases appear unremarkable. There is a small hiatal hernia. Liver, spleen, pancreas and adrenal glands appear unremarkable. There is cholelithiasis without evidence of gallbladder wall thickening or pericholecystic fluid. Kidneys appear symmetric without hydronephrosis. There is no evidence of bowel obstruction or focal bowel wall thickening. The appendix appears normal. The uterus is retroverted with multiple fibroids. Bilateral pars defects with grade 1 anterolisthesis at L5-S1. No suspicious osseous lesion IMPRESSION: 1. No acute findings. 2. Cholelithiasis. 3. Small hiatal hernia 4. Bilateral pars defects with grade 1 anterolisthesis at L5-S1. 5. Uterine fibroids Condition at Discharge: Good Final Diagnosis/Problems List Acute abdominal pain likely biliary colic Recurrent biliary colic, ? Cholecystitis Acute intractable nausea and vomiting Cholelithiasis ?Acute cholecystitis SALLY on CKD stage IV likely hemodynamically mediated due to VMN UTI likely acute cystitis Uncontrolled type 2 diabetes mellitus Hypertensive heart disease with suspected heart failure with preserved EF Hypokalemia Discharge Disposition: Home Discharge Instruct/Medications Diet: See Comment Diet comment: Full liquid diet for one week and then advance as tolerated Activity: Light activity Activity comment: Keep the abdominal binder on. Follow Up/Referral: Follow up with in the outpatient surgery clinic in one week Medications: as per EMR Discharge Statement: "Patient was advised to return to the ER or call 911 if any headaches, dizziness, shortness of breath, chest pain, abdominal pain, bleeding, fevers, or worsening of medical condition. Patient was counseled about treatment plan, medications, possible side effects, patientverbalized understanding. All questions were answered to the best of my ability. This discharge took greater then 30 minutes in planning, reviewing documentation, counseling the patient, and discussing with other team members." ASSESSMENT ASSESSMENT Assessment Acute abdominal pain likely biliary colic Recurrent biliary colic, ? Cholecystitis Acute intractable nausea and vomiting Cholelithiasis ?Acute cholecystitis SALLY on CKD stage IV likely hemodynamically mediated due to VMN UTI likely acute cystitis Uncontrolled type 2 diabetes mellitus Hypertensive heart disease with suspected heart failure with preserved EF Hypokalemia Date of Service: Oct 09, 2024 Billing Provider: BRODY BLANKENSHIP MD Common Visit Codes: [id number] DISCH DAY >30min ERICA MCGREGOR RESIDENT Oct 09, 2024 21:58 BRODY BLANKENSHIP MD Oct 14, 2024 08:38
== END 2024-10-09 19:59 | disposition home or self-care (01) | DRG 263 ==
LOC: EDBD 03:24 → ER 03:24 → OVERFLOW 09:58 → WEST WING 10:02
PROVIDERS: ADMIT Student in an Organized Health Care Education/Training Program; ATTEND Student in an Organized Health Care Education/Training Program
PROC: 0FT44ZZ Resection of Gallbladder, Percutaneous Endoscopic Approach (ICD-10-PCS; principal; 2024-10-07 08:51)
DX: K80.62 Calculus of gallbladder and bile duct with acute cholecystitis without obstruction (principal); N17.0 Acute kidney failure with tubular necrosis; E11.22 Type 2 diabetes mellitus with diabetic chronic kidney disease; I13.0 Hypertensive heart and chronic kidney disease with heart failure and stage 1 through stage 4 chronic kidney disease, or unspecified chronic kidney disease; N18.4 Chronic kidney disease, stage 4 (severe); I50.32 Chronic diastolic (congestive) heart failure; E87.6 Hypokalemia; N30.00 Acute cystitis without hematuria; Z88.5 Allergy status to narcotic agent; Z98.42 Cataract extraction status, left eye; Z80.0 Family history of malignant neoplasm of digestive organs; Z82.3 Family history of stroke; Z86.73 Personal history of transient ischemic attack (TIA), and cerebral infarction without residual deficits; Z79.899 Other long term (current) drug therapy; D25.9 Leiomyoma of uterus, unspecified; K44.9 Diaphragmatic hernia without obstruction or gangrene
CPT/HCPCS: 36415; 71045; 74018; 74176; 76705; 80048; 80053; 80061; 80307; 81001; 82306; 82570; 82962; 83036; 83605; 83690; 83735; 83970; 84100; 84156; 84300; 84702; 85025; 85610; 85730; 86850; 86900; 86901; 87040; 87086; 93005; 93306; 96361; 96365; 96367; 96375; 96376; 99291; G0378; J0330; J1100; J1815; J2405; J2704; J3490